=== PATIENT | female | born 1945 | race Caucasian/White ===

== ENCOUNTER → 2017-11-11 09:41 | Outpatient (CLI) | payer MEDICARE, OTHER, SELFPAY ==
--- NOTE | 2017-11-11 09:44 | HPBD_ITS ---
STUDY: DUAL ENERGY X-RAY ABSORPTIOMETRY / DXA REASON FOR EXAM: Female, 72 years old. The patient is postmenopausal. Loss of height. TECHNIQUE: Bone Mineral Density (BMD) measurements of lumbar spine and bilateral hips were obtained. COMPARISON: Comparison is made with prior study dated October 24, 2015. FINDINGS: Lumbar Spine (L1-L4): g/cm2 (1.015) / T-score (-1.3) / Z-score (0.5) Findings are suggestive of osteopenia with a moderate fracture risk. Left Femur Total: g/cm2 (0.771) / T-score (-1.9) / Z-score (-0.3) Left Femoral Neck: g/cm2 (0.737) / T-score (-2.2) / Z-score (-0.4) Right Femur Total: g/cm2 (0.709) / T-score (-2.4) / Z-score (-0.8) Right Femoral Neck: g/cm2 (0.715) / T-score (-2.3) / Z-score (-0.5) The T-Scores on the most recent prior examination were: Lumbar Spine (L1-L4): There has been worsening of bone density since the previous examination. Left Femur Total: which represents a worsening of 1.9%. Right Femur Total: which represents a worsening of 4.7%. HPBD/Dexa Bone Density Study (HP) IMPRESSION: The patient is considered osteopenic as outlined below according to World Shankar Organization (WHO) criteria with a moderate fracture risk. There has been worsening of bone density since the previous examination. Reference Information: The T-score is the number of standard deviations above or below the standard which is normal for young adults at their peak bone mineral density. The World Health Organization (WHO) interprets the T-scores as follows: Above -1 Normal bone density Between -1 and -2.5 Osteopenia Equal to / or below -2.5 Osteoporosis As a practical clinical guideline, osteopenia may be graded as follows: Mild -1 through -1.5 Moderate -1.6 through -2.0 Severe -2.1 through -2.4 The Z-score is the number of standard deviations above or below age-matched controls. A Z-score of less than -1.5 would be considered abnormal. References: 1. NIH Osteoporosis and Related Bone Diseases http://www.osteo.org 2. International Society for Clinical Densitometry http://www.iscd.org 3. National Osteoporosis Foundation http://www.nof.org Electronically Signed: Endy Zelaya MD at 10:16 EST Tel [phone], Service support ,
--- NOTE | 2017-11-11 09:44 | HPBI_ITS ---
MAMMOGRAPHY - BILATERAL SCREENING REASON FOR EXAM: Female, 72 years old. Routine annual screening examination. PERTINENT HISTORY: Non-contributory. TECHNIQUE: Digital bilateral breast jourdan (3D mammographic acquisition) in the CC and MLO projections. 2-D mediolateral oblique (MLO) and craniocaudad (CC) views of both breasts were obtained. CAD: Full Field Digital Mammography with Computer Added Detection was performed. COMPARISON: Comparison is made with prior study dated November 05, 2016 and October 24, 2015. FINDINGS: Breast Composition: There are scattered areas of fibroglandular density. There are no dominant masses or suspicious calcifications. No other significant abnormalities are identified. There has been no significant change since the prior study. HPBI/SCREENING MAMM (CAD), BILAT IMPRESSION: Stable bilateral screening mammogram. Yearly follow-up mammogram recommended. (A) ASSESSMENT CATEGORY: BIRADS Category 1: Negative. A letter regarding these results will be sent to the patient by the facility within 30 days. Approximately 10% of breast cancers are not detected by mammography. A normal mammogram should not delay biopsy of a clinically suspicious abnormality. [id number] Electronically Signed: Endy Zelaya MD at 13:11 EST Tel [phone], Service support ,
== END ==
PROVIDERS: Family Provider Internal Medicine; PCP Internal Medicine; Visit Provider Internal Medicine
DX: Z12.31 Encounter for screening mammogram for malignant neoplasm of breast (principal); N95.9 Unspecified menopausal and perimenopausal disorder; M85.80 Other specified disorders of bone density and structure, unspecified site
CPT/HCPCS: 77063; 77067; 77080

== ENCOUNTER 2018-02-27 11:40 | Emergency (ER) | payer MEDICARE, OTHER, SELFPAY ==
[2018-02-27 11:40] VITALS: BP 154/93; PULSE 85; RESP 18; TEMP 36.6; O2SAT 99; BMI 27.4
--- NOTE | 2018-02-27 12:24 | ED.VISSUMM ---
- ER Visit Summary Date of Service: 02/27/18 Chief Complaint: [] Upper lip laceration fall History of Present Illness: The patient is a 73 F [] she reports she fell tripping on pavement and suffered upper lip laceration no LOC no head neck chest pain no extremity pain complaints Physical Examination: [] Is about a 2 cm laceration through and through to the upper lip central her nose is unremarkable her facial bones are nontender extra muscles are full head neck nontender chest abdomen upper lower extremity nontender neurologically with movement moving all 4 heart and lungs are normal very minor chip to the upper incisors but she is aware of there is no bleeding there is no pain to the teeth there is no malocclusion there is no jaw pain Test Results: [] Emergency Department Course and Treatment: [] Discussed repair she agreed to suturing the area was sterilely prepped sanchez irrigated anesthetized and then closed with nylon with good results she was struck to have the sutures out in about 4-5 days and return for change in symptoms she will be started on Pen-Vee K and return for signs of infection 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 It may contain incorrect words, spelling, and punctuation that were not noted in review of the chart prior to signing ED Disposition - Plan for ED Patient: Chief Complaint: Laceration Referrals: Mary Curry DO [Primary Care Provider] -
--- NOTE | 2018-02-27 12:26 | ED.DEP ---
ED Disposition - Plan for ED Patient: Chief Complaint: Laceration Instructions: ED Laceration Mouth Prescriptions: Naproxen [Naprosyn] 500 mg PO BID PRN #20 tab Penicillin V Potassium 500 mg PO 4X/DAY #40 tab Referrals: Mary Curry DO [Primary Care Provider] -
[2018-02-27 12:32] VITALS: PULSE 92; RESP 14; O2SAT 98
== END 2018-02-27 12:53 | disposition home or self-care (01) ==
LOC: ED 12:36
PROVIDERS: Emergency Provider Emergency Medicine; Family Provider Internal Medicine; PCP Internal Medicine
DX: S01.511A Laceration without foreign body of lip, initial encounter (principal); W01.0XXA Fall on same level from slipping, tripping and stumbling without subsequent striking against object, initial encounter; Y93.9 Activity, unspecified; Y92.9 Unspecified place or not applicable; Y99.9 Unspecified external cause status
CPT/HCPCS: 12011; 99282

== ENCOUNTER → 2018-12-13 08:23 | Outpatient (CLI) | payer MEDICARE, OTHER, SELFPAY ==
--- NOTE | 2018-12-13 08:29 | BI_ITS ---
MAMMOGRAPHY - BILATERAL SCREENING REASON FOR EXAM: Female, 73 years old. Routine annual screening examination. PERTINENT HISTORY: Non-contributory. TECHNIQUE: Digital bilateral breast jourdan (3D mammographic acquisition) in the CC and MLO projections. 2-D mediolateral oblique (MLO) and craniocaudad (CC) views of both breasts were obtained. CAD: Full Field Digital Mammography with Computer Added Detection was performed. COMPARISON: Comparison is made with prior examination dated November 11, 2017 and November 05, 2016. FINDINGS: Breast Composition: There are scattered areas of fibroglandular density. There are no dominant masses or suspicious calcifications. No other significant abnormalities are identified. There has been no significant change since the prior study. BI/SCREENING MAMM (CAD), BILAT IMPRESSION: Stable bilateral screening mammogram. Yearly follow-up mammogram recommended. (A) ASSESSMENT CATEGORY: BIRADS Category 1: Negative. A letter regarding these results will be sent to the patient by the facility within 30 days. Approximately 10% of breast cancers are not detected by mammography. A normal mammogram should not delay biopsy of a clinically suspicious abnormality. [id number] Electronically Signed: Endy Zelaya, at 10:24 EST , Service support ,
== END ==
PROVIDERS: Family Provider Internal Medicine; PCP Internal Medicine; Referring Provider Internal Medicine; Visit Provider Internal Medicine
DX: Z12.31 Encounter for screening mammogram for malignant neoplasm of breast (principal)
CPT/HCPCS: 77063; 77067

== ENCOUNTER → 2019-11-16 08:33 | Outpatient (CLI) | payer MEDICARE, OTHER, SELFPAY ==
[2019-09-19 17:01] VITALS: BMI 27.4
[2019-11-16 12:24] LABS: Absolute Lymphocyte Count 0.98 X10^3/uL (0.83-4.51); Absolute Neutrophil Count 1.5 X10^3/uL (2.0-7.7); Basophil# 0.05 X10^3/uL; Basophil% 1.5 % (0-1); Eosinophil# 0.23 X10^3/uL; Eosinophils% 7.1 % (0-5); Hematocrit 38.3 % (37-47); Hemoglobin 12.4 g/dL (12.0-15.0); Lymphocyte # 0.98 X10^3/ul (4.0); Lymphocyte % 30.2 % (19-41); Mean Corp Hgb Conc 32.4 g/dL (32-36); Mean Corpuscular Hgb 30.8 pg (27.0-32.0); Mean Corpuscular Volume 95.3 fL (81-99); Mean Platelet Vol. 12.1 fl (6.2-12.0); Monocyte# 0.52 X10^3/uL; NRBC Flagged by Analyzer 0 % (0-5); Neutrophil # 1.46 X10^3/uL (2.7-7.7); Neutrophil % 44.9 % (47-70); Platelet Count 236 K/mm3 (150-450); RBC Distribution Width CV 12.6 % (11.6-14.6); RBC Distribution Width SD 44.1 fl (35.1-43.9); Red Blood Count 4.02 M/mm3 (4.2-5.4); White Blood Count 3.3 K/mm3 (4.4-11.0)
[2019-11-16 12:45] LABS: ALB/GLOB Ratio 0.9 RATIO (0.9-2.4); AST(SGOT) 21 U/L (15-37); Alanine Aminotransfer ALT/SGPT 24 U/L (13-56); Albumin, Serum 3.4 g/dL (3.2-5.0); Alkaline Phosphatase 56 U/L (45-117); Anion Gap 3 (5-15); BUN 15 mg/dL (7-18); Calcium,Total 9.1 mg/dL (8.5-10.1); Chloride 108 mmol/L (98-107); Creatinine, Serum 0.68 mg/dL (0.55-1.02); EST Glomerular Filtration Rate 89 mL/min (>60); Est Glom Filt Rate - Afr Amer 108 mL/min (>60); Globulin 3.6 g/dL (2.2-4.2); Glucose 85 mg/dL (74-106); Sodium Level 142 mmol/L (136-145)
[2019-11-16 12:48] LABS: Vitamin D,25 Hydroxy 51.4 ng/mL (29.95-100.01)
== END ==
PROVIDERS: PCP Internal Medicine; Referring Provider Internal Medicine; Visit Provider Internal Medicine
DX: M85.80 Other specified disorders of bone density and structure, unspecified site (principal); K21.9 Gastro-esophageal reflux disease without esophagitis
CPT/HCPCS: 36415; 80053; 82306; 85025

== ENCOUNTER → 2019-12-12 08:25 | Outpatient (CLI) | payer MEDICARE, OTHER, SELFPAY ==
[2019-11-16 08:44] VITALS: BMI 27.4
[2019-12-12 12:17] LABS: Absolute Lymphocyte Count 0.88 X10^3/uL (0.83-4.51); Absolute Neutrophil Count 2.1 X10^3/uL (2.0-7.7); Basophil# 0.07 X10^3/uL; Basophil% 1.9 % (0-1); Eosinophil# 0.19 X10^3/uL; Eosinophils% 5.1 % (0-5); Hematocrit 39.8 % (37-47); Hemoglobin 12.6 g/dL (12.0-15.0); Lymphocyte # 0.88 X10^3/ul (4.0); Lymphocyte % 23.5 % (19-41); Mean Corp Hgb Conc 31.7 g/dL (32-36); Mean Corpuscular Hgb 29.7 pg (27.0-32.0); Mean Corpuscular Volume 93.9 fL (81-99); Mean Platelet Vol. 11.6 fl (6.2-12.0); Monocyte# 0.48 X10^3/uL; Monocyte% 12.8 % (0-10); NRBC Flagged by Analyzer 0 % (0-5); Neutrophil # 2.11 X10^3/uL (2.7-7.7); Neutrophil % 56.4 % (47-70); Platelet Count 266 K/mm3 (150-450); RBC Distribution Width CV 13.2 % (11.6-14.6); RBC Distribution Width SD 45.1 fl (35.1-43.9); Red Blood Count 4.24 M/mm3 (4.2-5.4); White Blood Count 3.7 K/mm3 (4.4-11.0)
== END ==
PROVIDERS: PCP Internal Medicine; Referring Provider Internal Medicine; Visit Provider Internal Medicine
DX: D72.819 Decreased white blood cell count, unspecified (principal)
CPT/HCPCS: 36415; 85025

== ENCOUNTER → 2019-12-14 09:20 | Outpatient (CLI) | payer MEDICARE, OTHER, SELFPAY ==
[2019-09-19 13:57] VITALS: BMI 29.7
[2019-11-16 08:44] VITALS: BMI 27.4
--- NOTE | 2019-12-14 09:22 | BI_ITS ---
MAMMOGRAPHY - BILATERAL SCREENING REASON FOR EXAM: Female, 74 years old. Routine annual screening examination. PERTINENT HISTORY: TECHNIQUE: Digital bilateral breast minoo (3D mammographic acquisition) in the CC and MLO projections. 2-D mediolateral oblique (MLO) and craniocaudad (CC) views of both breasts were obtained. CAD: Full Field Digital Mammography with Computer Added Detection was performed. COMPARISON: Previous mammogram obtained on 12/13/2018 FINDINGS: Breast Composition: Heterogeneously dense There are no dominant masses or suspicious calcifications. No other significant abnormalities are identified. BI/SCREEN MAMM (CAD) W/MINOO BILAT IMPRESSION: Stable bilateral screening mammogram. Yearly follow-up mammogram recommended. (A) ASSESSMENT CATEGORY: BIRADS Category 1: Negative. A letter regarding these results will be sent to the patient by the facility within 30 days. Approximately 10% of breast cancers are not detected by mammography. A normal mammogram should not delay biopsy of a clinically suspicious abnormality. [id number] Electronically Signed: Deuce Jones, at 17:01 EST Tel , Service support ,
--- NOTE | 2019-12-14 09:25 | BD_ITS ---
STUDY: DUAL ENERGY X-RAY ABSORPTIOMETRY / DXA REASON FOR EXAM: Female, 74 years old. Age of lisseth- 40. Pat is 163# and 62.5 and quot; a loss of 1.5 and quot;. Currently on a HRT. Takes 1200mg of calcium and a multi-vit. Exercises moderately. TECHNIQUE: Bone Mineral Density (BMD) measurements of lumbar spine and bilateral hips were obtained. COMPARISON: Comparison is made with prior study dated November 11, 2017. FINDINGS: Lumbar Spine (L1-L4): g/cm2 (1.034) / T-score (-1.1) / Z-score (0.7) Findings are suggestive of osteopenia with a low fracture risk. Left Femur Total: g/cm2 (0.778) / T-score (-1.8) / Z-score (-0.1) Left Femoral Neck: g/cm2 (0.762) / T-score (-2.0) / Z-score (-0.1) Right Femur Total: g/cm2 (0.718) / T-score (-2.3) / Z-score (-0.6) Right Femoral Neck: g/cm2 (0.740) / T-score (-2.1) / Z-score (-0.2) The T-Scores on the most recent prior examination were: Lumbar Spine (L1-L4): There has been improvement of bone density since the previous examination. Left Femur Total: which represents an improvement of 0.9%. Right Femur Total: which represents an improvement of 1.3%. BD/Dexa Bone Density Study IMPRESSION: The patient is considered osteopenic as outlined below according to World Shankar Organization (WHO) criteria with a high fracture risk. There has been improvement of bone density since the previous examination. Reference Information: The T-score is the number of standard deviations above or below the standard which is normal for young adults at their peak bone mineral density. The World Health Organization (WHO) interprets the T-scores as follows: Above -1 Normal bone density Between -1 and -2.5 Osteopenia Equal to / or below -2.5 Osteoporosis As a practical clinical guideline, osteopenia may be graded as follows: Mild -1 through -1.5 Moderate -1.6 through -2.0 Severe -2.1 through -2.4 The Z-score is the number of standard deviations above or below age-matched controls. A Z-score of less than -1.5 would be considered abnormal. References: 1. NIH Osteoporosis and Related Bone Diseases http://www.osteo.org 2. International Society for Clinical Densitometry http://www.iscd.org 3. National Osteoporosis Foundation http://www.nof.org Electronically Signed: Endy Zelaya, at 15:34 EST , Service support ,
== END ==
PROVIDERS: Family Provider Internal Medicine; PCP Internal Medicine; Referring Provider Internal Medicine; Visit Provider Internal Medicine
DX: Z12.31 Encounter for screening mammogram for malignant neoplasm of breast (principal); M85.80 Other specified disorders of bone density and structure, unspecified site; Z79.890 Hormone replacement therapy; Z78.0 Asymptomatic menopausal state
CPT/HCPCS: 77063; 77067; 77080

== ENCOUNTER → 2020-09-06 09:08 | Outpatient (CLI) | payer MEDICARE, OTHER, SELFPAY ==
[2019-12-28 11:15] VITALS: BMI 27.4
[2020-09-06 10:21] LABS: Absolute Lymphocyte Count 1.36 X10^3/uL (0.83-4.51); Absolute Neutrophil Count 2.1 X10^3/uL (2.0-7.7); Basophil# 0.06 X10^3/uL; Basophil% 1.4 % (0-1); Eosinophil# 0.28 X10^3/uL; Eosinophils% 6.4 % (0-5); Hemoglobin 13.1 g/dL (12.0-15.0); Lymphocyte # 1.36 X10^3/ul (4.0); Lymphocyte % 31.1 % (19-41); Mean Corp Hgb Conc 31.2 g/dL (32-36); Mean Corpuscular Hgb 30.4 pg (27.0-32.0); Mean Corpuscular Volume 97.4 fL (81-99); Monocyte# 0.54 X10^3/uL; Monocyte% 12.4 % (0-10); NRBC Flagged by Analyzer 0 % (0-5); Neutrophil # 2.12 X10^3/uL (2.7-7.7); Neutrophil % 48.5 % (47-70); Platelet Count 226 K/mm3 (150-450); RBC Distribution Width CV 13.2 % (11.6-14.6); RBC Distribution Width SD 48.4 fl (35.1-43.9); Red Blood Count 4.31 M/mm3 (4.2-5.4); White Blood Count 4.4 K/mm3 (4.4-11.0)
[2020-09-06 10:32] LABS: BUN 14 mg/dL (7-18); Creatinine, Serum 0.74 mg/dL (0.55-1.02); EST Glomerular Filtration Rate 81 mL/min (>60); Glucose 87 mg/dL (74-106)
[2020-09-06 10:33] LABS: AST(SGOT) 23 U/L (15-37); Alanine Aminotransfer ALT/SGPT 22 U/L (13-56); Albumin, Serum 3.6 g/dL (3.2-5.0); Alkaline Phosphatase 80 U/L (45-117); Anion Gap 2 (5-15); BUN/Creat Ratio 18.9 RATIO (10-20); Calcium,Total 9.1 mg/dL (8.5-10.1); Chloride 107 mmol/L (98-107); Est Glom Filt Rate - Afr Amer 98 mL/min (>60); Globulin 3.7 g/dL (2.2-4.2); Potassium 4.1 mmol/L (3.5-5.1); Protein, Total 7.3 g/dL (6.4-8.2); Sodium Level 141 mmol/L (136-145)
== END ==
PROVIDERS: PCP Internal Medicine; Referring Provider Internal Medicine; Visit Provider Internal Medicine
DX: K21.9 Gastro-esophageal reflux disease without esophagitis (principal)
CPT/HCPCS: 36415; 80053; 85025

== ENCOUNTER 2020-12-06 04:22 | Observation (INO) | payer MEDICARE, OTHER, SELFPAY ==
[2020-11-19 09:47] VITALS: BMI 29.0
[2020-12-06] VITALS (12 sets, daily range): BP systolic 101–134; BP diastolic 50–71; PULSE 61–85; RESP 12–19; TEMP 36.3–37.1; O2SAT 93–99; BMI 30.9; BMI 28.5
--- NOTE | 2020-12-06 04:31 | EKG12_ITS ---
Test Reason : CP Blood Pressure : / mmHG Vent. Rate : 082 BPM Atrial Rate : 082 BPM P-R Int : 200 ms QRS Dur : 088 ms QT Int : 384 ms P-R-T Axes : 076 -14 067 degrees QTc Int : 448 ms Sinus rhythm Cannot rule out Anterior infarct , age undetermined Abnormal ECG Confirmed by SANDRA PALOMARES, GERARDO ([id number]), senior technical editor LEONARDO RODGERS ([id number]) on 12/09/2020 10:55:50 AM Referred By: BB Confirmed By:GERARDO FLORES MD
--- NOTE | 2020-12-06 04:34 | ED.DCSUM_ITS ---
History of Present Illness Chief Complaint: Chest Pain Informant: Patient, EMS Onset: Yesterday - 10.5 hrs prior to arrival Activity at onset: Rest - soon after eating dinner - nothing unusual Timing: Continuous Quality: Pressure Location: Substernal - lower chest/epigastrium Current Severity: Moderate Maximum Severity: Moderate Worsened By: - - possibly worse by lying supine. Not Worsened By: Exertion, Breathing Relieved By: - - maybe a little better when sits up. Not Relieved By: NTG - NTG and asa made it worse Associated Symptoms: - - abd distension, better w/ baking soda and water Narrative: Patient has a history of having had these symptoms in the past and she states it was suspected to be GI in etiology each time, but since she is getting old she wanted to make sure that she was not dealing with cardiac pain since it is nonpleuritic pressure in nature. Once she felt it in her mid upper back, but for the most part it has been nonradiating. No jaw, neck, or arm discomfort. No vomiting. Her abdomen was distended earlier but that is better now. She tried some supplements and baking soda with water but no prescriptions or OTC medications. She does not take any reflux prescriptions. Prior Similar Symptoms: Yes, - - w/ GERD - Past Medical History (1) Depression Status: Chronic (2) Gastroesophageal reflux disease Status: Chronic (3) Osteopenia Status: Chronic Past Medical History - Allergies and Home Meds Allergies/Adverse Reactions: Allergies almond Allergy (Mild, Verified 12/06/20 04:30) Swelling blue dye Allergy (Mild, Verified 12/06/20 04:30) Itch Anesthesia Allergy (Mild, Uncoded 12/06/20 04:30) Vomiting Prolonged (12 hrs) Dairy Allergy (Mild, Uncoded 12/06/20 04:30) Bronchitis/Swelling Eggs Allergy (Mild, Uncoded 12/06/20 04:30) Bronchitis/swelling Peaches Allergy (Mild, Uncoded 12/06/20 04:30) Swelling Vasoline Allergy (Mild, Uncoded 12/06/20 04:30) Itching Primary Care Physician: Justine Trejo MD [Primary Care Provider] - Surgical History: - - Bilateral tubal like ectomy Smoking Status: Never smoker Review of Systems General: Denies: Chills, Fever, Sweats Eyes: Denies: Visual changes - bilaterally, Diplopia ENT: Denies: Rhinorrhea, Sore throat Cardiovascular: Reports: Chest pain. Denies: Palpitations Respiratory: Denies: Dyspnea, Cough, Dyspnea on exertion Gastrointestinal: Reports: Abdominal pain, Nausea. Denies: Vomiting, Diarrhea, Melena, Hematochezia Genitourinary: Denies: Dysuria, Hematuria, Frequency Musculoskeletal: Denies: Neck pain, Extremity Pain Skin: Denies: Rash, Wounds Neurological: Denies: Headache, Weakness, Numbness Physical Exam Vital Signs/Narrative: Vital Signs Temp Pulse Resp BP Pulse Ox 12/06/20 04:23 97.7 F L 83 16 130/71 H 94 Inital Vital Signs reviewed: Yes General: Well nourished, Well developed, No Acute Distress - Well-appearing, conversive in full sentences Head: Normocephalic, Atraumatic Eyes: Perrl, EOMI ENT: Moist mucous membranes, No rhinorrhea Neck: Supple, Nontender Cardiovascular: Regular rate, Regular rhythm, Murmur - syst Respiratory: No distress, CTA bilaterally, Chest nontender Abdomen: Soft, Nondistended, Normal bowel sounds, Tender - Mild epigastric only. Negative for: Guarding, Rebound tenderness, Yepez's sign Back: Nontender, Normal Inspection. Negative for: CVA tenderness Extremities: Nontender, No edema. Negative for: Calf Tenderness Skin: Normal color, No rash, No Trauma Neurological: Alert, Oriented x3, Cranial nerves II-XII grossly intact, Normal Strength, Normal Sensation Psychological: Normal affect, Normal Mood Diagnostic/Tx/Re-eval Chest X-Ray - ED: 1 View, Read by ED Physician, No Acute Disease Clinical Impression(s) from Imaging Studies Chest X-Ray 12/06/20 04:40 IMPRESSION: Normal x-ray examination of the chest. Electronically Signed: Ross Alejandro DO at 4:56 EST Tel , Service support , Laboratory Tests 12/06/20 12/06/20 Range/Units 04:25 04:25 WBC 8.9 (4.4-11.0) K/mm3 RBC 4.13 L (4.2-5.4) M/mm3 Hgb 12.8 (12.0-15.0) g/dL Hct 39.4 (37-47) % MCV 95.4 (81-99) fL MCH 31.0 (27.0-32.0) pg MCHC 32.5 (32-36) g/dL RDW Std Deviation 45.2 H (35.1-43.9) fl RDW Coeff of Samson 12.8 (11.6-14.6) % Plt Count 225 (150-450) K/mm3 MPV 10.5 (6.2-12.0) fl Immature Gran % (Auto) 0.300 (0.0-0.9) % Neut % (Auto) 87.7 H (47-70) % Lymph % (Auto) 8.1 L (19-41) % Upton % (Auto) 3.4 (0-10) % Eos % (Auto) 0.1 (0-5) % Baso % (Auto) 0.4 (0-1) % Absolute Neuts (auto) 7.8 H (2.0-7.7) X10^3/uL Absolute Lymphs (auto) 0.72 L (0.83-4.51) X10^3/uL Nucleated RBC % 0 (0-5) % Sodium 137 (136-145) mmol/L Potassium 3.6 (3.5-5.1) mmol/L Chloride 103 (98-107) mmol/L Carbon Dioxide 28.0 (21.0-32.0) mmol/L Anion Gap 6 (5-15) BUN 20 H (7-18) mg/dL Creatinine 0.75 (0.55-1.02) mg/dL Estim Creat Clear Calc 40.21 ml/min Est GFR (MDRD) Af Amer 97 (>60) mL/min Est GFR (MDRD) Non-Af 80 (>60) mL/min BUN/Creatinine Ratio 26.7 H (10-20) RATIO Glucose 140 H (74-106) mg/dL Calcium 9.1 (8.5-10.1) mg/dL Total Bilirubin 0.40 (0.20-1.00) mg/dL AST 26 (15-37) U/L ALT 24 (13-56) U/L Alkaline Phosphatase 88 (45-117) U/L Troponin I < 0.015 (<0.045) ng/mL Total Protein 7.5 (6.4-8.2) g/dL Albumin 3.5 (3.2-5.0) g/dL Globulin 4.0 (2.2-4.2) g/dL Albumin/Globulin Ratio 0.9 (0.9-2.4) RATIO Lipase 82 (73-393) U/L - Rhythm Strip Rhythm Strip: Sinus Rhythm Rate: 82 Ectopy: None - EKG Initial EKG Interpretation: Sinus Rhythm, No Acute Injury Pattern, - - Poor R wave progression Prior: No 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 She indicated that the discomfort was colicky and she was having waves of nausea, and all this started after she ate soup with sausage and it. Patient presents when ultrasound is not available, so I evaluated her gallbladder with the ED screening ultrasound, see the procedure note. In doing so, I detected a large gallstone stuck in the neck of the gallbladder, which I suspect is causing her symptoms. Her cardiac work-up is negative she states this has been the case multiple times in the past but she has never had an ultrasound of her gallbladder when she was admitted for the symptoms, none of which were recent. She then was given a small dose of Toradol. This helped significantly with her pain. I discussed the concerning ultrasound findings with surgery on-call Dr. Washington, including the wall thickness of 0.5 cm and a large cholesterol stone stuck in the neck. His preference is to admit her for urgent cholecystectomy given early radiographic signs of acute cholecystitis. Official ultrasound ordered and pending when the technicians get in. Patient will be admitted to floor n.p.o. Procedures Procedure(s): Bedside gallbladder ultrasound by ED MD --ultrasound shows single large cholesterol stone lodged within the neck of the gallbladder with a positive sonographic Yepez's, this is more medial toward the epigastrium, not laterally where I examine for Yepez sign on exam. Gallbladder wall is approximately 0.5 cm. I do not see pericholecystic fluid. Gallbladder is distended. ED Disposition - Plan for ED Patient: Disposition: [facility] Diagnosis: Acute calculous cholecystitis Referrals: Justine Trejo MD [Primary Care Provider] -
[2020-12-06] MEDS: Mag Hydrox/Al Hydrox/Simeth 30 ML UDC PO (04:36)
--- NOTE | 2020-12-06 04:40 | RAD_ITS ---
STUDY: X-RAY CHEST REASON FOR EXAM: Female, 75 years old. CHEST PAIN TECHNIQUE: Single AP portable view of the chest. COMPARISON: 12/12/2015 FINDINGS: Mildly elevated right hemidiaphragm The lungs are clear and expanded. There is no demonstrated pleural abnormality. Normal size heart. Normal mediastinum and jesús. Normal visualized pulmonary arteries. Normal visualized aortic arch and descending thoracic aorta. Normal visualized thoracic spine. Normal visualized ribs, clavicles, and shoulders. There is no demonstrated abnormality of the visualized soft tissue structures of the upper abdomen. RAD/Chest 1 View (Portable) IMPRESSION: Normal x-ray examination of the chest. Electronically Signed: Ross Alejandro DO at 4:56 EST Tel , Service support ,
[2020-12-06 04:45] LABS: Absolute Lymphocyte Count 0.72 X10^3/uL (0.83-4.51); Absolute Neutrophil Count 7.8 X10^3/uL (2.0-7.7); Basophil# 0.04 X10^3/uL; Basophil% 0.4 % (0-1); Eosinophil# 0.01 X10^3/uL; Eosinophils% 0.1 % (0-5); Hematocrit 39.4 % (37-47); Hemoglobin 12.8 g/dL (12.0-15.0); Lymphocyte # 0.72 X10^3/ul (4.0); Lymphocyte % 8.1 % (19-41); Mean Corp Hgb Conc 32.5 g/dL (32-36); Mean Corpuscular Volume 95.4 fL (81-99); Mean Platelet Vol. 10.5 fl (6.2-12.0); Monocyte% 3.4 % (0-10); NRBC Flagged by Analyzer 0 % (0-5); Neutrophil % 87.7 % (47-70); Platelet Count 225 K/mm3 (150-450); RBC Distribution Width CV 12.8 % (11.6-14.6); RBC Distribution Width SD 45.2 fl (35.1-43.9); Red Blood Count 4.13 M/mm3 (4.2-5.4); White Blood Count 8.9 K/mm3 (4.4-11.0)
[2020-12-06 05:12] LABS: ALB/GLOB Ratio 0.9 RATIO (0.9-2.4); AST(SGOT) 26 U/L (15-37); Alanine Aminotransfer ALT/SGPT 24 U/L (13-56); Albumin, Serum 3.5 g/dL (3.2-5.0); Alkaline Phosphatase 88 U/L (45-117); Anion Gap 6 (5-15); BUN 20 mg/dL (7-18); BUN/Creat Ratio 26.7 RATIO (10-20); Calcium,Total 9.1 mg/dL (8.5-10.1); Chloride 103 mmol/L (98-107); Creatinine, Serum 0.75 mg/dL (0.55-1.02); EST Glomerular Filtration Rate 80 mL/min (>60); Est Glom Filt Rate - Afr Amer 97 mL/min (>60); Estimated Creatinine Clearance 40.21 ml/min; Glucose 140 mg/dL (74-106); Lipase 82 U/L (73-393); Potassium 3.6 mmol/L (3.5-5.1); Protein, Total 7.5 g/dL (6.4-8.2); Sodium Level 137 mmol/L (136-145)
[2020-12-06] MEDS: Ketorolac 15 MG/ML Vial IV (05:47)
--- NOTE | 2020-12-06 06:30 | US_ITS ---
STUDY: ABDOMINAL ULTRASOUND - RIGHT UPPER QUADRANT REASON FOR VISIT: Female, 75 years old epigastric pain x 3 days TECHNIQUE: Ultrasound evaluation of the right upper quadrant was performed with real-time and static lam-scale imaging. TECHNICAL QUALITY: Adequate. COMPARISON: None. FINDINGS: Liver: The liver measures 13.2 cm. There is normal echogenicity of the liver. The bile ducts are within normal limits. There is hepatic color flow. The direction of portal flow is hepatopetal. There is no demonstrated mass lesion. Gallbladder: There is a mildly distended gallbladder. The gallbladder wall measures 2.5 mm. There is a positive sonographic Yepez''s sign. There is pericholecystic fluid. There are multiple echogenic structures within the gallbladder, consistent with multiple gallstones. Sludge is also seen within the gallbladder lumen. Common Bile Duct (C.B.D.): The common bile duct measures 8 mm. Pancreas: Normal size of the head, body and tail of the pancreas. There is normal echogenicity of the pancreas. There is no demonstrated pancreatic mass or cyst. Right Kidney: Normal size of the right kidney. The right kidney measures 9.6 cm x 5.7 cm x 5 cm. Normal renal cortex. The right cortex measures 1.3 cm. There is no demonstrated renal mass or cyst. There is mild hydronephrosis of the right kidney. US/Abdomen Limited IMPRESSION: Mildly distended gallbladder containing multiple gallstones and sludge. Small amount of pericholecystic fluid. Mild right hydronephrosis. Electronically Signed: Endy Zelaya MD at 8:33 EST , Service support ,
--- NOTE | 2020-12-06 07:14 | HP.PCM_ITS ---
Problem List (1) Acute calculous cholecystitis Status: Acute History of Present Illness Date of Admission: 12/06/20 The patient is a 75 year old F who presented with lower chest and upper abdominal pain. She reports that she has had a few episodes of this pain recently and has had some more remote episodes like this as well. She denies any nausea or vomiting or fevers or chills. Past Medical History Past Medical History (Chronic Problems): Chronic Problems (Last Reviewed 12/28/19 @ 11:12 by Caryl Lackey) Acid reflux (Chronic) Osteopenia (Chronic) Hypoglycemia (Chronic) Hearing loss (Chronic) Wears Hearing Aids Back problem (Chronic) h/o Ruptured Disc Multiple food allergies (Chronic) Obesity (Chronic) Gastroesophageal reflux disease (Chronic) Depression (Chronic) Medical History: Medical History (Last Reviewed 12/28/19 @ 11:12 by Caryl Lackey) Acid reflux (Chronic) K21.9 Osteopenia (Chronic) M85.80 Hypoglycemia (Chronic) E16.2 Hearing loss (Chronic) H91.90 Wears Hearing Aids Back problem (Chronic) M53.9 h/o Ruptured Disc Multiple food allergies (Chronic) Z91.018 Allergies almond Allergy (Mild, Verified 12/06/20 04:30) Swelling blue dye Allergy (Mild, Verified 12/06/20 04:30) Itch Anesthesia Allergy (Mild, Uncoded 12/06/20 04:30) Vomiting Prolonged (12 hrs) Dairy Allergy (Mild, Uncoded 12/06/20 04:30) Bronchitis/Swelling Eggs Allergy (Mild, Uncoded 12/06/20 04:30) Bronchitis/swelling Peaches Allergy (Mild, Uncoded 12/06/20 04:30) Swelling Vasoline Allergy (Mild, Uncoded 12/06/20 04:30) Itching Home Medications: Ambulatory Orders Medication Instructions Recorded Calcium Citrate 600mg 600 mg PO DAILY 09/07/19 Citicoline 250mg 250 mg PO DAILY 09/07/19 Eye Drops 2 drop OPHTHALMIC TID 09/07/19 Homeopathic Remedy PO 09/07/19 diaplex mg PO DAILY 09/07/19 loratadine 10 mg tablet 10 mg PO DAILY 09/07/19 magnesium 250 mg tablet 250 mg PO BID tab 09/07/19 multivitamin 1 tab PO DAILY 09/07/19 omega-3 fatty acids 2,000 mg PO DAILY 09/07/19 ubiquinal 50mg PO DAILY 09/07/19 vitamin d 125 mcg 5 drop PO DAILY 09/07/19 C-estradiol See Rx Instructions VAGINAL .weekly 12/21/19 meclizine 25 mg tablet 25 mg PO DAILY PRN #60 tab 11/19/20 vitamin A 2 drop PO DAILY 11/19/20 Surgical History: Surgical History (Last Reviewed 12/28/19 @ 11:12 by Caryl Lackey) History of D&C Z98.890 X 3 History of cataract extraction Z98.49 History of tonsillectomy Z90.89 History of tubal ligation Z98.51 Surgical History: - - Bilateral tubal like ectomy Smoking Status: Never smoker - *Family History Paternal Family History: Family History (Last Reviewed 12/28/19 @ 11:12 by Caryl Lackey) Son Autoimmune disorder Mother Hypertension Kidney disease CVA (cerebral vascular accident) Colon cancer Father Alzheimer disease Grandmother Alzheimer disease Review of Systems Constitutional: Denies: Anorexia, Chills, Fever HEENT: Denies: Difficulty Swallowing Cardiovascular: Reports: Chest Pain Respiratory: Denies: Cough, Shortness of Breath, Shortness of breath at rest Gastrointestinal: Reports: Abdominal Pain. Denies: Nausea, Vomiting Genitourinary: Denies: Dysuria Musculoskeletal: Denies: Joint Tenderness Skin: Denies: Jaundice Neurological: Denies: Balance problems Hematologic/ Lymphatic: Denies: Anemia VTE Information - Inpt Only VTE Present on Admission: No VTE Mechan Device Prophylaxis: SCD's Patient Problems: Active and Suspected Problems (Last Reviewed 12/28/19 @ 11:12 by Caryl Lackey) Acute calculous cholecystitis (Acute) - Physical Exam Vitals/I&O's: Vital Signs Temp Pulse Resp BP Pulse Ox 97.7 F L 72 16 116/52 L 98 12/06/20 06:49 12/06/20 06:49 12/06/20 06:49 12/06/20 06:49 12/06/20 06:49 Oxygen Delivery Method Room Air Weight: 174 lb 6.17 oz Body Mass Index (BMI) 30.9 General: Alert, Oriented x3 Neck: No JVD Lungs: Normal air movement Cardiovascular: Regular rate, Regular Rhythm Abdomen: Soft, Non-Distended, Tender - Tender in the right upper quadrant positive Yepez sign Extremities: No clubbing Musculoskeletal: No Muscle Wasting Lymphatic: No Cervical, Supraclavicular, or Inguinal Adenopathy Neurological: Cranial nerves II-XII grossly intact Psych/Mental Status: Normal Affect Laboratory Results 12/06/20 04:25: WBC 8.9, RBC 4.13 L, Hgb 12.8, Hct 39.4, MCV 95.4, MCH 31.0, MCHC 32.5, RDW Std Deviation 45.2 H, RDW Coeff of Samson 12.8, Plt Count 225, MPV 10.5, Immature Gran % (Auto) 0.300, Neut % (Auto) 87.7 H, Lymph % (Auto) 8.1 L, [place] % (Auto) 3.4, Eos % (Auto) 0.1, Baso % (Auto) 0.4, Absolute Neuts (auto) 7.8 H, Absolute Lymphs (auto) 0.72 L, Nucleated RBC % 0 12/06/20 04:25: Sodium 137, Potassium 3.6, Chloride 103, Carbon Dioxide 28.0, Anion Gap 6, BUN 20 H, Creatinine 0.75, Estim Creat Clear Calc 40.21, Est GFR (MDRD) Af Amer 97, Est GFR (MDRD) Non-Af 80, BUN/Creatinine Ratio 26.7 H, Glucose 140 H, Calcium 9.1, Total Bilirubin 0.40, AST 26, ALT 24, Alkaline Phosphatase 88, Troponin I < 0.015, Total Protein 7.5, Albumin 3.5, Globulin 4.0, Albumin/Globulin Ratio 0.9, Lipase 82 Assessment/Plan All Active Problems (Last Reviewed 12/28/19 @ 11:12 by Caryl Lackey) Acute calculous cholecystitis (Acute) 75-year-old female with acute cholecystitis 1. Patient came in with right-sided chest and abdominal pain. EKG was normal and the patient had bedside ultrasound in the ER which showed a large stone stuck in the neck of the gallbladder. Patient also has a left shift. I discussed these findings with her and I recommended laparoscopic cholecystectomy. I advised her that if she waited for elective surgery she may have acute cholecystitis worsening and require emergency surgery at similar time in the interim. I recommended surgery today. 2. I discussed the procedure in detail with the patient. I discussed the risks, benefits, and alternatives of the procedure. I discussed the risks including but not limited to bleeding, infection, injury to surrounding organs such as the liver, bile duct, bowels. I did discuss the possibility of having to convert to an open procedure as well as the possibility that if any injuries occurred this may necessitate further surgery at a tertiary care center. 3. I will admit her to the floor and start antibiotics and order an official ultrasound to confirm the bedside findings. If these confirm the ER findings I will plan for laparoscopic cholecystectomy this afternoon. James Washington MD Pager: [facility] [address] [place] [address], [address] [place] [address] Office:
[2020-12-06] MEDS: 0.9% Normal Saline 1,000 ML 100 ML IV (08:49)
[2020-12-06] MEDS: 0.9% Saline Lock 10 ML Syringe IV (08:50)
--- NOTE | 2020-12-06 09:50 | CASEMGMT ---
RN LUIS ALFREDO Face to Face with patient for initial transition planning/care coordination assessment. RN CM introduced self and role at [facility]. Patient lying in bed, alert and oriented. Patient willing to participate in assessment and is able to answer all questions appropriately. Care providers, pharmacy, and demographics verified. Patient wishes to discharge home, denies need for home health at this time. Patient states she has no further needs or concerns at this time. CM to follow for discharge planning needs that may arise. PCP: Neil Specialists: [facility] general surgery Preferred Pharmacy: [facility] Insurance: Medicare Prescription Benefit: yes Living Will/HPOA: yes, yes, DIL Ben Gonzalez LNOK: son and dil Living Arrangements: Pt lives alone in a condo with two steps to enter with rail and grab bar. Patient states she was independent at home. She is still working as a dental hygientist. Transportation: self, son or dil DME/HHC: Pt does not have DME nor does she feel she needs it. She has not previously had HHC. Disposition Plan: Patient to discharge home with family support and follow up plans in place.
--- NOTE | 2020-12-06 10:45 | CT_ITS ---
STUDY: CT ABDOMEN AND PELVIS WITH CONTRAST REASON FOR EXAM: Female, 75 years old. ACUTE CORNELIA RADIATION DOSAGE (If Supplied By Facility): CTDIvol = ( 10.73 ) mGy, DLP = ( 607.15 ) mGycm TECHNIQUE: Transaxial images were obtained from the dome of the diaphragm to the symphysis pubis with oral contrast. Oral and amp; IV Gastrografin and amp; 100mL Isovue-300 was administered. Sagittal and coronal images were reconstructed. Individualized dose optimization techniques were used for this CT. COMPARISON: Comparison is made with prior sonogram done earlier in the day. FINDINGS: Minimal degree of increased markings at the right lung base suggestive of right basilar atelectasis. The visualized portions of the heart are within normal limits. There is a 5.8 mm cyst in the dome of the right lobe of the liver. A 6 mm cyst is also seen in the mid medial portion of the right lobe of the liver. The gallbladder is distended. At least 2 gallstones are seen in the region of the neck of the gallbladder. The larger gallstone measures 1.8 cm. There is evidence of pericholecystic fluid and mild degree of gallbladder wall thickening. Normal spleen. Normal pancreas. Normal bilateral adrenal glands. Minimal right hydronephrosis. Normal left kidney. Normal visualized stomach. Normal small intestine. Moderate amount of fecal material is seen in the colon. The appendix is visualized and appears normal. Normal abdominal aorta. Normal inferior vena cava. Normal retroperitoneum. Normal urinary bladder. Normal abdominal wall. Disc space narrowing and disc degeneration at the L5-S1 level. CT/Abdomen/Pelvis WITH Contrast IMPRESSION: Findings in keeping with acute cholecystitis. There is evidence of a 1.8 cm gallstone in the neck of the gallbladder. Electronically Signed: Endy Zelaya MD at 11:00 EST , Service support ,
[2020-12-06 12:06] LABS: Bedside Glucose 108 mg/dL (70-110)
--- NOTE | 2020-12-06 14:30 | GALL_PTH ---
PATIENT: JOELLE MERLOS LOC: MS3 U#:[id number] AGE/SX: 75/F ROOM: MS311 RE12/06/[address]: Dr. James Washington MD : 1945 BED: 1 DIS: 12/06/2020 SPEC #: [id number] RECD: 12/09/20 07:28 STATUS: [facility] #: [id number] MATEO: 12/06/20 14:[address]: James Washington DEPT: SURGICAL PATHOLOGY RECD BY: Dodie Murphy ENTERED: 12/09/20 08:22 SP TYPE: SHARI ARREOLA DR: Dr. Justine Trejo MD Tissues: Gallbladder, NOS Procedures: Surgery Specimen Level III HEADER OPERATION: Laparoscopic cholecystectomy with IOC PRE-OP DIAGNOSIS: Acute calculous cholecystitis TISSUE SUBMITTED: Gallbladder MICROSCOPIC DIAGNOSIS Gallbladder, cholecystectomy: Acute and chronic cholecystitis and cholelithiasis. Reactive epithelial changes. A pericystic benign lymph node with reactive changes. YESSENIA:gonzalez 12/10/2020 MICROSCOPIC DESCRIPTION Slides are reviewed. GROSS DESCRIPTION Received is one container labeled with the patient's name and designated gallbladder. The specimen consists of a gallbladder measuring 11 cm in length and up to 5 cm in diameter. The external surface is pink-sanders, smooth and glistening for the most part. Focally it is granular, hemorrhagic and contains cautery artifact. The gallbladder contains a small amount of sanders mucoid bile and four round to ovoid greenish-brown stones measuring in aggregate 3.5 x 3.5 x 2 cm and 1.5 to 2 cm in greatest dimension. Also present close to the cystic duct is an ovoid nodule measuring 0.8 cm in greatest dimension, most likely a possible lymph node. A sanders stone is also embedded in the gallbladder wall at the fundus of the gallbladder. Sections of the gallbladder wall reveal edematous cut surfaces. The gallbladder wall measures up to 1.2 cm in thickness. Downstream [employer]uring [employer]ician sections from the gallbladder and the cystic duct are submitted in two cassettes. / YESSENIA:gonzalez 12/09/20 TC:2 CPT: 20745
--- NOTE | 2020-12-06 14:30 | RAD_ITS ---
STUDY: INTRAOPERATIVE CHOLANGIOGRAM. REASON FOR EXAM: Female, 75 years old. PAIN, LAP CORNELIA FLUOROSCOPY TIME (if supplied): ( 22.5 seconds ) minutes/seconds. A single loop of 156 images were submitted. TECHNIQUE: An intraoperative glandular was performed by the surgeon. Imaging was submitted. COMPARISON: None. FINDINGS: The intrahepatic biliary ducts are unremarkable. The common bile duct is not dilated. No intraluminal filling defect is seen. Gallstones. RAD/Cholangiogram/ O R,Initial IMPRESSION: Gallstones. Normal intraoperative cholangiogram. Electronically Signed: Endy Zelaya MD at 15:35 EST , Service support ,
[2020-12-06] MEDS: Bupiv/Epi 0.25% 30 ML Vial (15:36)
--- NOTE | 2020-12-06 16:12 | PCM.OPRPT ---
Problem List (1) Acute calculous cholecystitis Status: Acute Report of Operation Date of Procedure: 12/06/20 Pre-Operative Diagnosis: Acute cholecystitis Post-Operative Diagnosis: Same Surgery/Procedure Performed:: Laparoscopic cholecystectomy with cholangiogram Description of Surgical Findings:: Inflamed gallbladder with large stones. Normal IOC. Specimen's removed: Gallbladder and contents Description of Procedure: After obtaining informed consent patient was brought back to the operating room. General anesthesia was induced. The abdomen was prepped and draped in usual sterile fashion. A small midline incision was made superior to the umbilicus and deepened to the level of fascia. The fascia was elevated and incised. Next the peritoneum was elevated and incised in the same fashion. Finger sweep was performed and the Saucedo trocar was placed into the abdomen. The balloon was inflated. The abdomen was inflated to 15 mmHg. Next a camera was introduced into the abdomen and the abdomen was inspected. Next under direct visualization three 5-mm ports were placed one subxiphoid and 2 subcostal. Next the gallbladder was elevated and retracted toward the right shoulder. The peritoneum was stripped from the gallbladder. The infundibulum was located and retracted laterally. Next the triangle of Calot was dissected and the cystic duct and cystic artery were identified. Cholangiograms were performed. The Rosas clamp was used to clamp across the infundibulum and the catheter needle was inserted into the gallbladder. Under fluoroscopy contrast was instilled into the gallbladder and the common duct, cystic duct as well as proximal hepatic ducts were identified. There was good filling of the duodenum. There were no filling defects noted in the common bile duct. The clamp was removed as well as the needle and the infundibulum was grasped once more. Three hemolock clips were placed across the cystic duct. The cystic duct was then divided leaving 2 clips on the stump. The cystic artery was clipped and divided in the same fashion. The hook cautery was then used to take the gallbladder off of the gallbladder bed. Hemostasis was obtained. Gallbladder fossa was irrigated and no active bleeding or bile leakage was noted. Next the camera was introduced in the subxiphoid port. An Endopouch bag was placed through the umbilical port and the gallbladder was placed into it. The gallbladder was then removed through the umbilical incision. The camera was then reinserted through the umbilical port. The gallbladder fossa was inspected once more and noted to be hemostatic with no leaking bile. The abdomen was suctioned dry. The 5 mm ports were removed under direct visualization. The umbilical port was then removed and the air was removed from the abdomen. Next using an 0 Vicryl suture the umbilical fascia was closed in a [id number] fashion. The umbilical port site was irrigated local anesthetic was administered to all the incisions. All the incisions were closed with interrupted subcuticular 4-0 Monocryl sutures followed by Steri-Strips and dressings. The patient was awoken and taken to PACU in stable condition. - Admit VTE Documentation VTE Mechan Device Prophylaxis: SCD's
--- NOTE | 2020-12-06 16:19 | DCINST_ITS ---
Discharge Diet: Light diet - advance as tolerated Discharge Activity: Return to Normal Activity, May Not Drive - for 2-3 days or while taking narcotic pain medicataions., - - Do not drive, work heavy equipment or sign legal documents for 24 hours. May shower in (days): 1 - with the bandage in place. Lifting Restrictions: 20 lbs for 2 weeks Additional Activity Instructions:: Pain medication may cause nausea. You should typically eat light foods as you take your pain medications. Pain medication may also cause constipation. If this is a problem for you, please discuss with your doctor. Call your doctor if your incision/area has: Continuous Slow Oozing, Sudden Increased Bleeding, Increased Pain/ Swelling, Increased Redness, Foul Smelling Discharge, Fever of 101 or Higher Call your doctor if you observe: Fever of 101 or Higher Suture Line Care: Avoid Pulling/Pushing, Avoid Pinching/Bending Additional Dressing/Incision Instructions:: Leave operative bandaids on for 2 days. When you remove dressing, leave Steri-Strips on until your follow-up appointment, or until the Steri-Strips fall off on their own. Allergies/Adverse Reactions: Allergies almond Allergy (Mild, Verified 12/06/20 04:30) Swelling blue dye Allergy (Mild, Verified 12/06/20 04:30) Itch Anesthesia Allergy (Mild, Uncoded 12/06/20 04:30) Vomiting Prolonged (12 hrs) Dairy Allergy (Mild, Uncoded 12/06/20 04:30) Bronchitis/Swelling Eggs Allergy (Mild, Uncoded 12/06/20 04:30) Bronchitis/swelling Peaches Allergy (Mild, Uncoded 12/06/20 04:30) Swelling Vasoline Allergy (Mild, Uncoded 12/06/20 04:30) Itching Medications to take at Discharge Calcium Citrate 600mg 600 mg PO DAILY 09/07/19 Citicoline 250mg 250 mg PO DAILY 09/07/19 Eye Drops 2 drop OPHTHALMIC TID 09/07/19 Homeopathic Remedy PO 09/07/19 diaplex mg PO DAILY 09/07/19 loratadine 10 mg tablet 10 mg PO DAILY 09/07/19 magnesium 250 mg tablet 250 mg PO BID tab 09/07/19 multivitamin 1 tab PO DAILY 09/07/19 omega-3 fatty acids 2,000 mg PO DAILY 09/07/19 ubiquinal 50mg 1 tab PO DAILY 09/07/19 vitamin d 125 mcg 5 drop PO DAILY 09/07/19 C-estradiol See Rx Instructions VAGINAL .weekly 12/21/19 meclizine 25 mg tablet 25 mg PO DAILY PRN #60 tab 11/19/20 vitamin A 2 drop PO DAILY 11/19/20 Oxycodone [Oxyir] 5 - 10 mg PO Q4H PRN PRN 5 Days #30 tab 12/06/20 The following prescriptions were given: Oxycodone [Oxyir] 5 - 10 mg PO Q4H PRN PRN 5 Days #30 tab PRN Reason: Pain Score 4-10/10 Transmission Status: Received by [facility] Primary Care Physician: Justine Trejo MD [Primary Care Provider] - Test Results: Test results from this visit will be discussed in further detail at your follow- up appointment, if applicable. Please Follow Up With: James Washington MD When: Please call to schedule 2 week follow up appointment. [phone]
[2020-12-06] MEDS: Acetaminophen 325 MG Tablet 650 MG PO (18:43)
--- NOTE | 2020-12-06 21:20 | NURSING ---
d/c pt 12/06 1919-neal rn took pt out the front door
== END 2020-12-06 19:20 | disposition home or self-care (01) ==
LOC: ED 06:36 → MS3 06:55
PROVIDERS: Admitting Provider Surgery; Emergency Provider Emergency Medicine; PCP Internal Medicine; Visit Provider Surgery
PROC: (CPT 47610; principal; 2020-12-06 14:10)
DX: K80.12 Calculus of gallbladder with acute and chronic cholecystitis without obstruction (principal); K21.9 Gastro-esophageal reflux disease without esophagitis; F32.9 Major depressive disorder, single episode, unspecified; Z79.899 Other long term (current) drug therapy; E66.9 Obesity, unspecified; Z68.30 Body mass index [BMI] 30.0-30.9, adult; R94.31 Abnormal electrocardiogram [ECG] [EKG]; G25.81 Restless legs syndrome
CPT/HCPCS: 47563; 71045; 74177; 74300; 76000; 76705; 80053; 82962; 83690; 84484; 85025; 87426; 88304; 93005; 96365; 96375; 99218; 99251; 99285; J7030; Q9967; A4216; G0378; G0463; J2405

== ENCOUNTER 2021-06-11 10:21 | Day surgery (SDC) | payer MEDICARE, OTHER, SELFPAY ==
[2021-05-13 13:09] VITALS: BMI 28.5
[2021-06-11] VITALS (7 sets, daily range): BP systolic 106–117; BP diastolic 48–65; PULSE 61–69; RESP 16; TEMP 36.2–36.9; O2SAT 100; BMI 27.3
[2021-06-11] MEDS: Lactated Ringers 1,000 ML 100 ML IV (10:35)
--- NOTE | 2021-06-11 10:46 | HP.PCM_ITS ---
History and Physical Date of Admission: 06/11/21 Intake Vital Signs 05/13/21 13:08 05/13/21 13:09 Height 5 ft 2.5 in Weight: 155 lb BMI 27.8 28.5 BP 126/72 H Blood Pressure Location Rt brachial Position Sitting Respiration 16 Intake Visit Reasons: C-Scope Chief Complaint: c-scope Android Developer Required: No Is patient in pain?: No Allergies almond Allergy (Mild, Verified 05/13/21 13:09) Swelling blue dye Allergy (Mild, Verified 05/13/21 13:09) Itch Anesthesia Allergy (Mild, Uncoded 05/13/21 13:09) Vomiting Dairy Allergy (Mild, Uncoded 05/13/21 13:09) Bronchitis/Swelling Eggs Allergy (Mild, Uncoded 05/13/21 13:09) Bronchitis/swelling Peaches Allergy (Mild, Uncoded 05/13/21 13:09) Swelling Vasoline Allergy (Mild, Uncoded 05/13/21 13:09) Itching Medications Calcium Citrate 600mg 600 mg PO DAILY 09/07/19 [History Confirmed 05/13/21] Citicoline 250mg 250 mg PO DAILY 09/07/19 [History Confirmed 05/13/21] Eye Drops 2 drp OPHTHALMIC TID 09/07/19 [History Confirmed 05/13/21] Homeopathic Remedy PO 09/07/19 [History Confirmed 05/13/21] diaplex mg PO DAILY 09/07/19 [History Confirmed 05/13/21] loratadine 10 mg tablet 10 mg PO DAILY 09/07/19 [History Confirmed 05/13/21] magnesium 250 mg tablet 250 mg PO BID tab 09/07/19 [History Confirmed 05/13/21] multivitamin 1 tab PO DAILY 09/07/19 [History Confirmed 05/13/21] omega-3 fatty acids 2,000 mg PO DAILY 09/07/19 [History Confirmed 05/13/21] ubiquinal 50mg 1 tab PO DAILY 09/07/19 [History Confirmed 05/13/21] vitamin d 125 mcg 5 drp PO DAILY 09/07/19 [History Confirmed 05/13/21] C-estradiol See Rx Instructions VAGINAL .weekly 12/21/19 [History Confirmed 05/13/21] meclizine 25 mg tablet 25 mg PO DAILY PRN #60 tab 11/19/20 [Rx Confirmed 05/13/21] vitamin A 2 drp PO DAILY 11/19/20 [History Confirmed 05/13/21] PFSH Medical History Acid reflux Back problem Hearing loss Hypoglycemia Multiple food allergies Osteopenia Surgical History History of cataract extraction History of D&C History of laparoscopic cholecystectomy (~12/2020) History of tonsillectomy History of tubal ligation Hx of cholecystectomy Family History Son Autoimmune disorder Mother Hypertension Kidney disease Stones, 1.5 Kidney removed CVA (cerebral vascular accident) Colon cancer Father Alzheimer disease Grandmother Alzheimer disease Social History number of children: 1 Smoking Status: Never smoker alcohol intake: current alcohol intake frequency: holidays/special occasions only substance use type: does not use what type of physical activity do you participate in: walking and weight training frequency: 3-4 times per week seatbelt use: always do you feel safe at home: Yes HPI HPI HPI: JOELLE MERLOS, is a 76 F who presents to the office today for surveillance col onoscopy. The patient had her last colonoscopy 5 years ago. She had polyps during that colonoscopy. She has had colonoscopies every 5 years with polyps. Patient has no family history of colon cancer. No abdominal pain or blood in the stool. ROS General General: No weight change, appetite, fatigue, colon cancer, breast cancer or weakness HEENT HEENT: Yes eye injury and eye surgery; No difficulty swallowing, swollen glands or hoarseness Endo Endocrine: No thyroid disease, diabetes mellitus, thyroid cancer, Hair loss, heat intolerance or cold intolerance Skin Skin: No rash or changing moles Breast Breast: No left breast lump, right breast lump, nipple discharge, breast pain, abnormal mammogram, abnormal US or breast enlargement Musc Musculoskeletal: Yes back problems; No arthritis, rheumatoid arthritis, gout or joint pain Cardio Cardiovascular: No murmur, pacemaker, heart disease, atrial fibrillation, high blood pressure, heart attack, heart stent, palpitations, shortness of breat with exertion or chest pain Psych Psychiatric: No depression, anxiety or hearing voices Resp Respiratory: No shortness of breath, No sleep apnea, No cough, No COPD, No asthma, No emphysema and No wheezing Gastro Gastrointestinal: No abdominal pain, No nausea or vomiting, No diarrhea, No constipation, No blood in stool, Yes acid reflux, No hemorrhoids, No ulcers, No gallbladder problem and No black,tarry stools Lit Hematologic: No blood thinners, No blood disorders, No bleeding, No anemia and No blood clots Neuro Neurologic: No system reviewed and no additional complaints, except as documented, No as per HPI, No abnormal gait, No abnormal hearing, No abnormal movements, No abnormal speech, No behavioral changes, No burning sensations, No confusion, No convulsions, No disequilibrium, No dizziness, No localized weakness, No frequent falls, No headache(s), No lack of coordination, No loss of vision, No memory loss, No numbness, No other visual disturbances, No radicular pain, No restless legs, No sensory deficit, No syncope, No tingling, No tremor(s), No weakness and No other Exam Const General: cooperative Orientation: alert and oriented x3 HENMT Head: normal to inspection Neck Neck: normal visual inspection and full ROM Chest Chest palpation & inspection: normal inspection of the chest Resp Effort & Inspection: normal respiratory effort Auscultation: clear to auscultation bilaterally Cardio Rate: regular rate Rhythm: regular rhythm GI Inspection: non-distended Palpation: soft and nontender Skin General: no rashes or lesions noted Neuro General: patient alert and patient oriented x3 Extrem General: full ROM Psych Appearance: grossly normal Mental Status: mental status grossly normal Assessment and Plan Assessment and Plan (1) History of colon polyps: Status: Acute Orders: Orders: Colonoscopy Today Plan - Dr. James Washington MD: Patient has history of colon polyps and requires colonoscopy for surveillance. I explained endoscopy in detail to the patient. I explained the risks including but not limited to stroke or heart attack with anesthesia, perforation of the GI tract, bleeding, infection. I explained that any of these could necessitate further emergency surgery. The patient understands and all questions were answered sufficiently. The patient wishes to proceed with procedure. James Washington MD Pager: [facility] [address] [place] [address], [address] [place] [address] Office: I have re-examined the patient. There are no clinical changes since date of exam.
--- NOTE | 2021-06-11 11:49 | OP.CCLET_ITS ---
06/11/2021 Justine Trejo MD [address] [place] [address] [place] [address] Re : Colonoscopy procedure for Meenu Gonzalez Dear Dr. Trejo This procedure was performed on Friday, June 11, 2021. My impressions and recommendations are as follows: Impressions : - The entire examined colon is normal on direct and retroflexion views. - No specimens collected. Recommendations : - Discharge patient to home. - Resume previous diet. - Continue present medications. - Repeat colonoscopy is not recommended due to current age (66 years or older) for screening purposes. My findings are described in the full procedure note, which is enclosed. If I can be of further assistance, please feel free to contact me at Doctor phone number(s): , Work: . Sincerely, James Washington MD 06/11/2021 11:48:30 AM This report has been signed electronically.
--- NOTE | 2021-06-11 11:49 | OP.COLON_ITS ---
Patient Name: Meenu Gonzalez Procedure Date: 06/11/2021 11:21 AM Date of : 1945 Age: 76 Procedure: Colonoscopy Indications: Surveillance: Personal history of adenomatous polyps on last colonoscopy 5 years ago Providers: James Washington MD Medicines: Monitored Anesthesia Care Patient Profile: This is a 76 year old female. Refer to note in patient chart for documentation of history and physical. Last Colonoscopy: 5 years ago. Complications: No immediate complications. Procedure: Pre-Anesthesia Assessment: - Prior to the procedure, a History and Physical was performed, and patient medications and allergies were reviewed. The patient's tolerance of previous anesthesia was also reviewed. The risks and benefits of the procedure and the sedation options and risks were discussed with the patient. All questions were answered, and informed consent was obtained. Prior Anticoagulants: The patient has taken no previous anticoagulant or antiplatelet agents. After reviewing the risks and benefits, the patient was deemed in satisfactory condition to undergo the procedure. After I obtained informed consent, the scope was passed under direct vision. Throughout the procedure, the patient's blood pressure, pulse, and oxygen saturations were monitored continuously. The Colonoscope was introduced through the anus and advanced to the cecum, identified by appendiceal orifice and ileocecal valve. The colonoscopy was performed without difficulty. The patient tolerated the procedure well. The quality of the bowel preparation was good. Scope In: 11:29:06 AM Scope Withdrawal Time 0 hours 6 minutes 28 seconds Scope Out: 11:43:28 AM Total Procedure Duration Time 0 hours 14 minutes 22 seconds Findings: The entire examined colon appeared normal on direct and retroflexion views. Impression: - The entire examined colon is normal on direct and retroflexion views. - No specimens collected. Recommendation: - Discharge patient to home. - Resume previous diet. - Continue present medications. - Repeat colonoscopy is not recommended due to current age (66 years or older) for screening purposes. Procedure Code(s): --- Professional --- G0105, Colorectal cancer screening; colonoscopy on individual at high risk Diagnosis Code(s): --- Professional --- Z86.010, Personal history of colonic polyps CPT copyright 2017 [employer]. All rights reserved. The codes documented in this report are preliminary and upon coder operator review may be revised to meet current compliance requirements. James Washington MD 06/11/2021 11:48:30 AM This report has been signed electronically. Number of Addenda: 0 Note Initiated On: 06/11/2021 11:21 AM
== END 2021-06-11 12:40 ==
LOC: EN 10:25 → AC 10:25
PROVIDERS: PCP Internal Medicine; Referring Provider Internal Medicine; Visit Provider Surgery
PROC: 0DJD8ZZ Inspection of Lower Intestinal Tract, Via Natural or Artificial Opening Endoscopic (ICD-10-PCS; CPT 45378; principal; 2021-06-11 11:25)
DX: Z12.11 Encounter for screening for malignant neoplasm of colon (principal); K21.9 Gastro-esophageal reflux disease without esophagitis; D64.9 Anemia, unspecified; H91.90 Unspecified hearing loss, unspecified ear; Z79.899 Other long term (current) drug therapy; Z86.010 Personal history of colon polyps; Z87.19 Personal history of other diseases of the digestive system
CPT/HCPCS: G0105; J7120; J2405

== ENCOUNTER → 2021-09-30 10:22 | Outpatient (CLI) | payer MEDICARE, OTHER, SELFPAY ==
[2021-09-30 12:02] LABS: Absolute Lymphocyte Count 0.89 X10^3/uL (0.83-4.51); Absolute Neutrophil Count 2.4 X10^3/uL (2.0-7.7); Basophil# 0.06 X10^3/uL; Basophil% 1.5 % (0-1); Eosinophil# 0.12 X10^3/uL; Hematocrit 38.8 % (37-47); Hemoglobin 12.4 g/dL (12.0-15.0); Lymphocyte # 0.89 X10^3/ul (0.83-4.51); Lymphocyte % 22.3 % (19-41); Mean Corpuscular Hgb 29.7 pg (27.0-32.0); Mean Corpuscular Volume 92.8 fL (81-99); Mean Platelet Vol. 11.2 fl (6.2-12.0); Monocyte# 0.56 X10^3/uL; NRBC Flagged by Analyzer 0 % (0-5); Neutrophil # 2.35 X10^3/uL (2.7-7.7); Neutrophil % 58.9 % (47-70); Platelet Count 242 K/mm3 (150-450); RBC Distribution Width CV 13.2 % (11.6-14.6); RBC Distribution Width SD 45.2 fl (35.1-43.9); Red Blood Count 4.18 M/mm3 (4.2-5.4)
[2021-09-30 12:24] LABS: ALB/GLOB Ratio 0.8 RATIO (0.9-2.4); AST(SGOT) 20 U/L (15-37); Alanine Aminotransfer ALT/SGPT 23 U/L (13-56); Albumin, Serum 3.1 g/dL (3.2-5.0); Alkaline Phosphatase 80 U/L (45-117); Anion Gap 3 (5-15); BUN 19 mg/dL (7-18); BUN/Creat Ratio 26.3 RATIO (10-20); Calcium,Total 9.3 mg/dL (8.5-10.1); Chloride 107 mmol/L (98-107); Cholesterol 192 mg/dL (200); Creatinine, Serum 0.72 mg/dL (0.55-1.02); EST Glomerular Filtration Rate 83 mL/min (>60); Est Glom Filt Rate - Afr Amer 101 mL/min (>60); Glucose 89 mg/dL (74-106); High Density Lipoprotein 95 mg/dL; Protein, Total 7.1 g/dL (6.4-8.2); Sodium Level 140 mmol/L (136-145); Triglycerides 43 mg/dL; Very Low Density Lipoprotein 9 mg/dL (5-40)
[2021-09-30 12:27] LABS: Vitamin D,25 Hydroxy 42.6 ng/mL
== END ==
PROVIDERS: PCP Internal Medicine; Visit Provider Internal Medicine
DX: E78.5 Hyperlipidemia, unspecified (principal); F32.9 Major depressive disorder, single episode, unspecified; R53.83 Other fatigue; M85.80 Other specified disorders of bone density and structure, unspecified site; E66.9 Obesity, unspecified
CPT/HCPCS: 36415; 80053; 80061; 82306; 85025

== ENCOUNTER → 2022-11-27 | Outpatient (CLI) | payer MEDICARE, SELFPAY ==
[2022-11-27 12:41] LABS: Absolute Lymphocyte Count 0.91 X10^3/uL (0.83-4.51); Basophil# 0.07 X10^3/uL; Basophil% 1.9 % (0-1); Eosinophil# 0.18 X10^3/uL; Eosinophils% 4.8 % (0-5); Hematocrit 36.5 % (37-47); Hemoglobin 11.5 g/dL (12.0-15.0); Lymphocyte # 0.91 X10^3/ul (0.83-4.51); Lymphocyte % 24.1 % (19-41); Mean Corp Hgb Conc 31.5 g/dL (32-36); Mean Corpuscular Volume 95.3 fL (81-99); Mean Platelet Vol. 11.5 fl (6.2-12.0); Monocyte# 0.56 X10^3/uL; Monocyte% 14.9 % (0-10); NRBC Flagged by Analyzer 0 % (0-5); Neutrophil # 2.04 X10^3/uL (2.7-7.7); Platelet Count 273 K/mm3 (150-450); RBC Distribution Width CV 14.2 % (11.6-14.6); RBC Distribution Width SD 49.5 fl (35.1-43.9); Red Blood Count 3.83 M/mm3 (4.2-5.4); White Blood Count 3.8 K/mm3 (4.4-11.0)
[2022-11-27 12:50] LABS: ALB/GLOB Ratio 0.8 RATIO (0.9-2.4); AST(SGOT) 24 U/L (15-37); Alanine Aminotransfer ALT/SGPT 26 U/L (13-56); Albumin, Serum 3.1 g/dL (3.2-5.0); Alkaline Phosphatase 78 U/L (45-117); Anion Gap 4 (5-15); BUN 13 mg/dL (7-18); BUN/Creat Ratio 17.9 RATIO (10-20); Calcium,Total 9.1 mg/dL (8.5-10.1); Chloride 104 mmol/L (98-107); Creatinine, Serum 0.73 mg/dL (0.55-1.02); EST Glomerular Filtration Rate 82 mL/min (>60); Est Glom Filt Rate - Afr Amer 100 mL/min (>60); Glucose 87 mg/dL (74-106); Potassium 4.3 mmol/L (3.5-5.1); Protein, Total 7.1 g/dL (6.4-8.2); Sodium Level 142 mmol/L (136-145)
[2022-11-27 12:52] LABS: Vitamin D,25 Hydroxy 39.3 ng/mL
[2022-11-30 08:28] LABS: Ferritin 12 ng/mL (8-252); Iron 88 ug/dL (50-170); Iron Binding Capacity,Total 383 ug/dL (250-450)
== END | disposition home or self-care (01) ==
LOC: BIMLAB 08:47
PROVIDERS: PCP Internal Medicine; Referring Provider Internal Medicine; Visit Provider Internal Medicine
DX: M85.80 Other specified disorders of bone density and structure, unspecified site (principal); D64.9 Anemia, unspecified
CPT/HCPCS: 36415; 80053; 82306; 82728; 83540; 83550; 85025

== ENCOUNTER → 2022-12-01 | Outpatient (CLI) | payer MEDICARE, SELFPAY ==
[2022-12-01 12:34] LABS: Vitamin B12 335 pg/mL (211-911)
== END | disposition home or self-care (01) ==
LOC: BIMLAB 10:25
PROVIDERS: PCP Internal Medicine; Referring Provider Internal Medicine; Visit Provider Internal Medicine
DX: D64.9 Anemia, unspecified (principal)
CPT/HCPCS: 36415; 82607

== ENCOUNTER → 2022-12-15 | Outpatient (CLI) | payer MEDICARE, SELFPAY ==
--- NOTE | 2022-12-15 14:46 | BI_ITS ---
MAMMOGRAPHY - BILATERAL SCREENING REASON FOR EXAM: Female, 77 years old. Routine annual screening examination. PERTINENT HISTORY: Non-contributory. TECHNIQUE: Digital bilateral breast minoo (3D mammographic acquisition) in the CC and MLO projections. 2-D mediolateral oblique (MLO) and craniocaudad (CC) views of both breasts were obtained. CAD: Full Field Digital Mammography with Computer Added Detection was performed. COMPARISON: Comparison is made with prior study dated 12/14/2019 01/10/2019. FINDINGS: Breast Composition: The breasts are heterogeneously dense, which may obscure small masses. There are no dominant masses or suspicious calcifications. No other significant abnormalities are identified. There has been no significant change since the prior study. BI/SCRN MAMM (CAD)W/MINOO BILAT IMPRESSION: Stable bilateral screening mammogram. Yearly follow-up mammogram recommended. (A) ASSESSMENT CATEGORY: BIRADS Category 1: Negative. A letter regarding these results will be sent to the patient by the facility within 30 days. Approximately 10% of breast cancers are not detected by mammography. A normal mammogram should not delay biopsy of a clinically suspicious abnormality. [id number] Electronically Signed: Endy Zelaya MD at 9:18 EST ,
--- NOTE | 2022-12-15 14:57 | BD_ITS ---
STUDY: DUAL ENERGY X-RAY ABSORPTIOMETRY / DXA REASON FOR EXAM: Female, 77 years old. Osteopenia TECHNIQUE: Bone Mineral Density (BMD) measurements of lumbar spine and bilateral hips were obtained. COMPARISON: Comparison is made with prior study dated December 14, 2019. FINDINGS: Lumbar Spine (L1-L4): g/cm2 (0.964) / T-score (-0.8) / Z-score (1.8) Findings are suggestive of normal bone density with a low fracture risk. Left Femur Total: g/cm2 (0.761) / T-score (-1.5) / Z-score (0.5) Left Femoral Neck: g/cm2 (0.637) / T-score (-1.9) / Z-score (0.3) Right Femur Total: g/cm2 (0.703) / T-score (-2.0) / Z-score (0.0) Right Femoral Neck: g/cm2 (0.645) / T-score (-1.8) / Z-score (0.4) The T-Scores on the most recent prior examination were: Lumbar Spine (L1-L4): There has been worsening of bone density since the previous examination. Left Femur Total: which represents an improvement of 6%. Right Femur Total: which represents an improvement of 6.6%. BD/Dexa Bone Density Study IMPRESSION: The patient is considered osteopenic as outlined below according to World Shank[employer] Organization (WHO) criteria with a moderate fracture risk. There has been improvement of bone density since the previous examination. Reference Information: The T-score is the number of standard deviations above or below the standard which is normal for young adults at their peak bone mineral density. The World Health Organization (WHO) interprets the T-scores as follows: Above -1 Normal bone density Between -1 and -2.5 Osteopenia Equal to / or below -2.5 Osteoporosis As a practical clinical guideline, osteopenia may be graded as follows: Mild -1 through -1.5 Moderate -1.6 through -2.0 Severe -2.1 through -2.4 The Z-score is the number of standard deviations above or below age-matched controls. A Z-score of less than -1.5 would be considered abnormal. References: 1. NIH Osteoporosis and Related Bone Diseases www osteo.org 2. International Society for Clinical Densitometry www iscd.org 3. National Osteoporosis Foundation www nof.org Electronically Signed: Endy Zelaya MD at 13:33 EST ,
== END | disposition home or self-care (01) ==
PROVIDERS: PCP Internal Medicine; Visit Provider Internal Medicine
DX: Z12.31 Encounter for screening mammogram for malignant neoplasm of breast (principal); Z78.0 Asymptomatic menopausal state
CPT/HCPCS: 77063; 77067; 77080

== ENCOUNTER 2023-02-19 13:38 | Emergency (ER) | payer MEDICARE, SELFPAY ==
[2023-02-19 13:39] VITALS: BP 147/61; PULSE 79; RESP 18; TEMP 35.6; O2SAT 98; BMI 27.4
--- NOTE | 2023-02-19 14:48 | EKG12_ITS ---
Test Reason : NEAR SYNCOPE Blood Pressure : / mmHG Vent. Rate : 069 BPM Atrial Rate : 069 BPM P-R Int : 204 ms QRS Dur : 078 ms QT Int : 394 ms P-R-T Axes : 079 -02 051 degrees QTc Int : 422 ms Sinus rhythm with Premature atrial complexes Otherwise normal ECG Confirmed by ELTON PALOMARES, VERONICA ([id number]), production editor LEONARDO RODGERS ([id number]) on 02/22/2023 2:40:22 PM Referred By: YO/ANKITA Confirmed By:ANGELO CONDE MD
--- NOTE | 2023-02-19 14:52 | EX.ED.DYSGE1 ---
HPI <PAKO Polk - Last Filed: 02/19/23 18:26> History of Present Illness Chief Complaint: Dizziness Narrative Narrative: 78-year-old female with history of depression, hyperlipidemia, acid reflux who presents to the emergency department with 2 near syncopal episodes. Patient states that 3 days ago, she did give blood secondary to her being O+. Patient states that the next day, she was cooking, she was grating potatoes when she felt lightheaded, as she might pass out she went and laid on the couch. The next day, the patient was walking around her grass doing yard work, she then felt near syncopal at that time and had to go and lay on the floor. She called her PCPs office today, they recommend she go to the emergency department. She is concerned for cardiac issue secondary to having family history. She denies any chest pain. Patient is asymptomatic at this time. She does state over the last 6 months to feel slight fatigue. [facility] <PAKO Polk - Last Filed: 02/19/23 18:26> [facility] Medical History (Updated 02/19/23 @ 18:26 by PAKO Polk) Acid reflux Anemia Back problem Fatigue Gastric reflux Health care maintenance Hearing loss History of edema History of stress test Hyperlipidemia Hypoglycemia Injury of back Migraine headache Multiple food allergies Non-smoker Osteopenia Wears glasses Home Medications Calcium Citrate 600mg 600 mg PO DAILY supplement 09/07/19 [History Last Taken 12/05/20] Eye Drops 2 drp ophthalmic (eye) BID dry eyes 09/07/19 [History Last Taken 12/05/20] Homeopathic Remedy 2 drp PO .Q2WEEK 09/07/19 [History Last Taken Unknown] diaplex 1 cap PO DAILY 09/07/19 [History Last Taken Unknown] loratadine 10 mg tablet 10 mg PO DAILY allergies 09/07/19 [History Last Taken 12/05/20] magnesium 250 mg tablet 250 mg PO BID supplement 09/07/19 [History Last Taken 12/05/20] multivitamin 1 tab PO DAILY supplement 09/07/19 [History Last Taken 12/06/20 -1] omega-3 fatty acids 2,000 mg PO DAILY supplement 09/07/19 [History Last Taken 12/05/20] ubiquinal 50mg 1 tab PO DAILY supplement 09/07/19 [History Last Taken 12/05/20] vitamin d 125 mcg 5 drp PO DAILY supplement 09/07/19 [History Last Taken 12/05/20] C-estradiol See Rx Instructions vaginal .weekly replacement 12/21/19 [History Last Taken 12/05/20] vitamin A 2 drp PO DAILY supplement 11/19/20 [History Last Taken 12/05/20] Magnesium L-Threonate PO 09/30/21 [History Last Taken Unknown] Rutin PO 11/27/22 [History Last Taken Unknown] ascorbate calcium (vitamin C) 500 mg tablet 500 mg PO DAILY 11/27/22 [History Last Taken Unknown] Allergy/AdvReac Type Severity Reaction Status Date / Time almond Allergy Mild Swelling Verified 02/19/23 13:39 blue dye Allergy Mild Itch Verified 02/19/23 13:39 egg [eggs] Allergy Mild Swelling Verified 02/19/23 13:39 milk [dairy] Allergy Mild Swelling Verified 02/19/23 13:39 peach Allergy Mild Swelling Verified 02/19/23 13:39 petrolatum,white Allergy Mild Itching Verified 02/19/23 13:39 [From Petroleum Jelly] Anesthetics - Amide Type - AdvReac Vomiting Verified 02/19/23 13:39 Select A [anesthesia] Family History Son Autoimmune disorder Mother Hypertension Kidney disease Stones, 1.5 Kidney removed CVA (cerebral vascular accident) Colon cancer Father Alzheimer disease Grandmother Alzheimer disease Surgical History History of cataract extraction History of D&C History of laparoscopic cholecystectomy (~12/2020) History of tonsillectomy History of tubal ligation Hx of cholecystectomy Social History number of children: 1 Smoking Status: Never smoker alcohol intake: current alcohol intake frequency: holidays/special occasions only substance use type: does not use what type of physical activity do you participate in: walking and weight training frequency: 3-4 times per week seatbelt use: always do you feel safe at home: Yes ROS <PAKO Polk - Last Filed: 02/19/23 18:26> ROS ED ROS Narrative Constitutional: Negative for fever, chills, weight loss, weakness Eyes: Negative for vision loss, vision change, double vision ENT: Negative for any sore throat, ear pain, congestion Cardiovascular: Negative for any chest pain, tightness, palpitations Respiratory: Negative for any cough, sputum production, hemoptysis, dyspnea, dyspnea on exertion, orthopnea Gastrointestinal: Negative for any abdominal pain, nausea, vomiting, diarrhea, constipation, blood in stool, blood in vomit : Negative for any urinary frequency, dysuria, retention, blood in urine Muscle skeletal: Negative for any muscle joint pain, stiffness, myalgias, arthralgias, neck pain, back pain Neurological: Negative for any headache, numbness or tingling, dizziness. Positive for near syncope x2 Skin: Negative for any rashes, lumps, itching, abrasions, lacerations Psychiatric: Negative for any depression, anxiety, stress, suicidal ideation, homicidal ideation Hematologic: Negative for any easy bruising, excessive bruising, easy bleeding Allergies: Negative for any eczema, hives, rash EXAM <PAKO Polk - Last Filed: 02/19/23 18:26> Physical Exam Narrative Exam Narrative: Vital signs reviewed. Patient is asymptomatic at this time. Patient vital signs are stable. HEET: Head normocephalic atraumatic, TMs clear bilaterally. Posterior pharynx is clear, moist mucous membranes. Nares clear bilaterally. Neck: Supple with no lymphadenopathy or tenderness. No signs of meningismus, negative jolt sign. Cardiac: Regular rate and rhythm no murmurs gallops or rubs, equal peripheral pulses bilaterally. Respiratory: Lungs clear to auscultation bilaterally. No chest tenderness. Abdomen: Soft, nontender, nondistended. No abdominal bruit or pulsatile masses. No hepatosplenomegaly Extremities: No peripheral edema, no signs of gross trauma or deformity. Active full range of motion of all extremities. Neuro: Cranial nerves II through XII intact, no focal neurological deficits. Skin: Clean dry and intact with no rash, purpura, petechiae, vesicles or pustules. Backs/flank: No CVA tenderness, no midline spinal tenderness, no deformity. Psych: Normal mood and affect. No SI, HI or acute psychosis. Const Vital Signs: 02/19/23 13:39 02/19/23 14:37 02/19/23 15:18 Temperature 96.1 F L Temperature Source Temporal Pulse Rate 79 Pulse Rate [Lying] 70 Pulse Rate [Sitting (for 1 minute prior to obtaining)] 63 Pulse Rate [Standing (for 1 minute prior to obtaining)] 68 Respiratory Rate 18 Respiratory Pattern Normal Blood Pressure 147/61 H Blood Pressure [Lying] 120/69 Blood Pressure [Sitting (for 1 minute prior to obtaining)] 124/62 H Blood Pressure [Standing (for 1 minute prior to obtaining)] 107/82 H Blood Pressure Mean 89 Blood Pressure Mean [Lying] 86 Blood Pressure Mean [Sitting (for 1 minute prior to obtaining)] 82 Blood Pressure Mean [Standing (for 1 minute prior to obtaining)] 90 Pulse Ox 98 Positive well nourished and well developed General Appearance ED: well developed <Dr. Redd Womack MD - Last Filed: 02/19/23 16:08> Physical Exam Const Vital Signs: 02/19/23 13:39 02/19/23 14:37 02/19/23 15:18 Temperature 96.1 F L Temperature Source Temporal Pulse Rate 79 Pulse Rate [Lying] 70 Pulse Rate [Sitting (for 1 minute prior to obtaining)] 63 Pulse Rate [Standing (for 1 minute prior to obtaining)] 68 Respiratory Rate 18 Respiratory Pattern Normal Blood Pressure 147/61 H Blood Pressure [Lying] 120/69 Blood Pressure [Sitting (for 1 minute prior to obtaining)] 124/62 H Blood Pressure [Standing (for 1 minute prior to obtaining)] 107/82 H Blood Pressure Mean 89 Blood Pressure Mean [Lying] 86 Blood Pressure Mean [Sitting (for 1 minute prior to obtaining)] 82 Blood Pressure Mean [Standing (for 1 minute prior to obtaining)] 90 Pulse Ox 98 MDM <PAKO Polk - Last Filed: 02/19/23 18:26> [facility] Lab Data Attestation: I reviewed the patient's lab results. Labs: Laboratory Results - last 24 hr 02/19/23 02/19/23 02/19/23 15:15 15:15 17:45 WBC 5.9 RBC 3.52 L Hgb 10.7 L Hct 32.4 L MCV 92.0 MCH 30.4 MCHC 33.0 RDW Std Deviation 47.4 H RDW Coeff of Samson 14.1 Plt Count 209 MPV 10.7 Immature Gran % (Auto) 0.300 Neut % (Auto) 69.8 Lymph % (Auto) 16.9 L [place] % (Auto) 10.8 H Eos % (Auto) 1.2 Baso % (Auto) 1.0 Absolute Neuts (auto) 4.1 Absolute Lymphs (auto) 1.00 Nucleated RBC % 0 Sodium 142 Potassium 3.8 Chloride 106 Carbon Dioxide 31.0 Anion Gap 5 BUN 16 Creatinine 0.71 Estim Creat Clear Calc 38.35 Est GFR (MDRD) Af Amer 102 Est GFR (MDRD) Non-Af 84 BUN/Creatinine Ratio 22.5 H Glucose 110 H Calcium 9.0 Troponin I High Sens 8 9 Radiography Diagnostic Testing: Clinical Impression(s) from Imaging Studies Chest X-Ray 02/19/23 15:42 IMPRESSION: Degenerative changes, as described above. No demonstrated acute cardiopulmonary process. No major interval change. Electronically Signed: Silviano Baumann DO at 16:32 EDT Reading Location ID and State: [address] [place] [address] Tel [phone], Service support , EKG Sinus rhythm : Attestation: I personally reviewed and interpreted this EKG as follows: Comments: Sinus rhythm with premature atrial complexes, rate of 69 bpm NC interval 204 ms, QRS duration 78 ms, no acute ST elevation, no acute infarct noted. Treatment and Re-Evaluation :: All radiologic examinations were read, reviewed by the emergency department attending. From these reads, a plan of care will be put in place. Patient appears generally well, patient appears nontoxic, vital signs are stable. Patient presents to the emergency department with complaints of 2 episodes of near syncope post giving blood 3 days ago. Both of these near syncopal episodes when the patient was standing straight up, and moving. Patient denies any chest pain or shortness of breath. Patient did receive a two-view chest x-ray, this showed degenerative changes however no acute cardiopulmonary process. Patient's laboratory values show slight anemia with a hemoglobin of 10.7, in November 2022 she was 11.5. Patient's initial troponin was 8, this was negative, she will receive a second troponin. At this time, there is no evidence suspect any acute ACS, DC. No evidence of any pneumonia. There is no evidence of any CVS or stroke. Patient appears generally well. If the patient does have a negative second troponin, I do believe that this is secondary to patient giving blood. Patient and son are both happy with the plan of care they will follow-up outpatient. All questions answered. Patient's second troponin was negative. At this time there is no evidence of an ACS, DC. Patient will be discharged home. Likely near syncope is secondary to giving blood 4 days ago. Patient stable for discharge <Dr. Redd Womack MD - Last Filed: 02/19/23 16:08> [facility] Narrative Medical decision making narrative: I have personally performed a face to face assessment of the patient and have reviewed the [facility] Note. I performed a substantive portion of the visit including all aspects of the following. My bills findings include: History: Patient presents with 2 near syncopal episodes. On Wednesday afternoon she donated blood. she was standing up peeling potatoes at the counter. She was standing with her knees locked for period of time. She then started to get lightheaded. She laid down on the ground and symptoms resolved. She was able to continue her activity. She never got dyspneic, focal neurologic deficit or focal weakness or numbness, chest pain or palpitations. She just felt overall weak. She had that episode happen again today but not quite as bad. She contacted her physician who referred her in here. She overall feels well now. She does report that she has always had a problem with her blood pressure being on the lower side. She does not have high blood pressure. Exam: Patient awake alert no acute distress. Very pleasant. HEENT shows minimally dry mucous membranes but no sign of trauma. No thrush. Lungs are clear bilaterally no pain with a deep breath. Saturations are normal at about 98 to 99% on room air showing no hypoxia. Heart rate while laying down is about 75 or 80. Regular. I do not hear a murmur. Peripheral pulses are equal and normal. Abdomen is soft and completely nontender. I feel no pulsatile mass I hear no bruit. Extremities show no edema cords or asymmetry or swelling. Medical Decision Making: Patient's symptoms are likely caused by combination of hydration donating blood dietary intake and positioning as in standing for a while. But we will do medical work-up make sure we do not see any marked abnormalities. Patient would very much like to go home. As long as her work-up shows no acute illness requiring admission I think that is reasonable. Lab Data Labs: Laboratory Results - last 24 hr 02/19/23 02/19/23 02/19/23 15:15 15:15 17:45 WBC 5.9 RBC 3.52 L Hgb 10.7 L Hct 32.4 L MCV 92.0 MCH 30.4 MCHC 33.0 RDW Std Deviation 47.4 H RDW Coeff of Samson 14.1 Plt Count 209 MPV 10.7 Immature Gran % (Auto) 0.300 Neut % (Auto) 69.8 Lymph % (Auto) 16.9 L [place] % (Auto) 10.8 H Eos % (Auto) 1.2 Baso % (Auto) 1.0 Absolute Neuts (auto) 4.1 Absolute Lymphs (auto) 1.00 Nucleated RBC % 0 Sodium 142 Potassium 3.8 Chloride 106 Carbon Dioxide 31.0 Anion Gap 5 BUN 16 Creatinine 0.71 Estim Creat Clear Calc 38.35 Est GFR (MDRD) Af Amer 102 Est GFR (MDRD) Non-Af 84 BUN/Creatinine Ratio 22.5 H Glucose 110 H Calcium 9.0 Troponin I High Sens 8 9 Radiography Diagnostic Testing: Clinical Impression(s) from Imaging Studies Chest X-Ray 02/19/23 15:42 IMPRESSION: Degenerative changes, as described above. No demonstrated acute cardiopulmonary process. No major interval change. Electronically Signed: Silviano Baumann DO at 16:32 EDT Reading Location ID and State: [address] [place] [address] Tel [phone], Service support , Discharge Plan Triage Chief Complaint: Dizziness Other Complaint: Fatigue ED Midlevel Provider: Germain Christensen ED Provider: Redd Womack Dx/Rx/DC Orders Clinical Impression: Near syncope Instructions: Causes of Syncope, ED Near-Fainting, Uncertain Cause Prescriptions: No Action vitamin d 125 mcg 5 drp PO DAILY Calcium Citrate 600mg 600 mg PO DAILY multivitamin Tablet 1 tab PO DAILY omega-3 fatty acids capsule capsule 2,000 mg PO DAILY diaplex 1 cap PO DAILY magnesium 250 mg tablet 250 mg PO BID loratadine 10 mg tablet 10 mg PO DAILY ubiquinal 50mg 1 tab PO DAILY Eye Drops 2 drp OPHTHALMIC BID Homeopathic Remedy 2 drp PO .Q2WEEK C-estradiol See Rx Instructions VAGINAL .weekly Label Comments: unwrap and insert one suppository vaginally once weekly Rx Instructions: 1.5mg vaginal .weekly; Magnesium L-Threonate PO Rx Instructions: 2000mg BID Rutin PO Rx Instructions: 125mg 2 x a week vitamin A 2 drp PO DAILY ascorbate calcium (vitamin C) 500 mg tablet 500 mg PO DAILY Primary Care Provider: Justine Trejo Referrals: Justine Trejo MD [Primary Care Provider] - Disposition Disposition: Home, Self Care
[2023-02-19 15:18] VITALS: BP 107/82; BP 120/69; BP 124/62; PULSE 63; PULSE 68; PULSE 70
[2023-02-19 15:19] LABS: Absolute Neutrophil Count 4.1 X10^3/uL (2.0-7.7); Basophil# 0.06 X10^3/uL; Eosinophil# 0.07 X10^3/uL; Eosinophils% 1.2 % (0-5); Hematocrit 32.4 % (37-47); Hemoglobin 10.7 g/dL (12.0-15.0); Lymphocyte % 16.9 % (19-41); Mean Corpuscular Hgb 30.4 pg (27.0-32.0); Mean Platelet Vol. 10.7 fl (6.2-12.0); Monocyte# 0.64 X10^3/uL; Monocyte% 10.8 % (0-10); NRBC Flagged by Analyzer 0 % (0-5); Neutrophil # 4.13 X10^3/uL (2.7-7.7); Neutrophil % 69.8 % (47-70); Platelet Count 209 K/mm3 (150-450); RBC Distribution Width CV 14.1 % (11.6-14.6); RBC Distribution Width SD 47.4 fl (35.1-43.9); Red Blood Count 3.52 M/mm3 (4.2-5.4); White Blood Count 5.9 K/mm3 (4.4-11.0)
[2023-02-19] MEDS: 0.9% Normal Saline 1,000 ML 1000 ML IV (15:26)
[2023-02-19 15:42] LABS: Anion Gap 5 (5-15); BUN 16 mg/dL (7-18); BUN/Creat Ratio 22.5 RATIO (10-20); Chloride 106 mmol/L (98-107); Creatinine, Serum 0.71 mg/dL (0.55-1.02); EST Glomerular Filtration Rate 84 mL/min (>60); Est Glom Filt Rate - Afr Amer 102 mL/min (>60); Estimated Creatinine Clearance 38.35 ml/min; Glucose 110 mg/dL (74-106); Potassium 3.8 mmol/L (3.5-5.1); Sodium Level 142 mmol/L (136-145); Troponin-I HS (w/2H Reflex) 8 pg/mL (3.0-54.0)
--- NOTE | 2023-02-19 15:42 | RAD_ITS ---
STUDY: X-RAY CHEST REASON FOR EXAM: Female, 78 years old. Chest pain. Near syncopal episode 2 days ago after giving blood. Fatigue. TECHNIQUE: PA and lateral views of the chest. COMPARISON: December 06, 2020. FINDINGS: The lungs are clear and expanded. There is no demonstrated pleural abnormality. Normal size heart. Normal mediastinum and jesús. Normal visualized pulmonary arteries. Normal visualized aortic arch and descending thoracic aorta. There are diffuse degenerative changes of the visualized thoracic spine. There is degenerative osteoarthritis of the bilateral shoulders. There is no demonstrated abnormality of the visualized soft tissue structures of the upper abdomen. RAD/Chest PA and Lateral IMPRESSION: Degenerative changes, as described above. No demonstrated acute cardiopulmonary process. No major interval change. Electronically Signed: Silviano Baumann DO at 16:32 EDT ,
[2023-02-19 17:17] LABS: Reflex Troponin-HS? (from REC) Y
[2023-02-19 18:15] LABS: Troponin-I HS 9 pg/mL (3.0-54.0)
== END 2023-02-19 18:36 | disposition home or self-care (01) ==
PROVIDERS: Nurse Practitioner; Emergency Provider Emergency Medicine; PCP Internal Medicine; Visit Provider Emergency Medicine
DX: R55 Syncope and collapse (principal); E78.5 Hyperlipidemia, unspecified; Z79.899 Other long term (current) drug therapy; F32.A Depression, unspecified
CPT/HCPCS: 71046; 80048; 84484; 85025; 93005; 96360; 99283; J7030; A4216

== ENCOUNTER → 2023-03-12 | Outpatient (CLI) | payer MEDICARE, SELFPAY ==
[2023-03-12 12:12] LABS: Absolute Lymphocyte Count 0.88 X10^3/uL (0.83-4.51); Absolute Neutrophil Count 2.4 X10^3/uL (2.0-7.7); Basophil# 0.05 X10^3/uL; Basophil% 1.2 % (0-1); Eosinophil# 0.15 X10^3/uL; Eosinophils% 3.7 % (0-5); Hematocrit 35.2 % (37-47); Hemoglobin 11.4 g/dL (12.0-15.0); Lymphocyte # 0.88 X10^3/ul (0.83-4.51); Lymphocyte % 21.9 % (19-41); Mean Corp Hgb Conc 32.4 g/dL (32-36); Mean Corpuscular Hgb 30.8 pg (27.0-32.0); Mean Corpuscular Volume 95.1 fL (81-99); Mean Platelet Vol. 11.7 fl (6.2-12.0); Monocyte% 12.5 % (0-10); NRBC Flagged by Analyzer 0 % (0-5); Neutrophil # 2.42 X10^3/uL (2.7-7.7); Neutrophil % 60.5 % (47-70); Platelet Count 243 K/mm3 (150-450); RBC Distribution Width CV 14.2 % (11.6-14.6); RBC Distribution Width SD 49.5 fl (35.1-43.9)
[2023-03-12 12:49] LABS: Vitamin B12 840 pg/mL (211-911)
[2023-03-12 13:00] LABS: Iron 70 ug/dL (50-170); Iron Binding Capacity,Total 370 ug/dL (250-450); PERCENT IRON SATURATION 18.9 % (15.0-55.0)
== END | disposition home or self-care (01) ==
LOC: BIMLAB 08:52
PROVIDERS: PCP Nurse Practitioner Family; Referring Provider Nurse Practitioner Family; Visit Provider Nurse Practitioner Family
DX: F32.A Depression, unspecified (principal); D64.9 Anemia, unspecified
CPT/HCPCS: 36415; 82607; 83540; 83550; 85025

== ENCOUNTER → 2023-09-29 | Outpatient (CLI) | payer MEDICARE, SELFPAY ==
[2023-09-29 12:19] LABS: Basophil# 0.06 X10^3/uL; Basophil% 1.6 % (0-1); Eosinophil# 0.21 X10^3/uL; Eosinophils% 5.7 % (0-5); Hematocrit 39.1 % (37-47); Hemoglobin 12.7 g/dL (12.0-15.0); Lymphocyte % 24.3 % (19-41); Mean Corp Hgb Conc 32.5 g/dL (32-36); Mean Corpuscular Hgb 31.4 pg (27.0-32.0); Mean Corpuscular Volume 96.5 fL (81-99); Mean Platelet Vol. 11.1 fl (6.2-12.0); Monocyte# 0.56 X10^3/uL; Monocyte% 15.1 % (0-10); NRBC Flagged by Analyzer 0 % (0-5); Neutrophil # 1.96 X10^3/uL (2.7-7.7); Platelet Count 269 K/mm3 (150-450); RBC Distribution Width CV 13.4 % (11.6-14.6); RBC Distribution Width SD 47.7 fl (35.1-43.9); Red Blood Count 4.05 M/mm3 (4.2-5.4); White Blood Count 3.7 K/mm3 (4.4-11.0)
[2023-09-29 12:48] LABS: Vitamin D,25 Hydroxy 38.8 ng/mL
[2023-09-29 13:03] LABS: ALB/GLOB Ratio 0.8 RATIO (0.9-2.4); AST(SGOT) 27 U/L (15-37); Alanine Aminotransfer ALT/SGPT 25 U/L (13-56); Albumin, Serum 3.3 g/dL (3.2-5.0); Alkaline Phosphatase 83 U/L (45-117); Anion Gap 3 (5-15); BUN 11 mg/dL (7-18); BUN/Creat Ratio 13.8 RATIO (10-20); Calcium,Total 8.9 mg/dL (8.5-10.1); Chloride 106 mmol/L (98-107); EST Glomerular Filtration Rate 74 mL/min (>60); Est Glom Filt Rate - Afr Amer 90 mL/min (>60); Ferritin 33 ng/mL (8-252); Globulin 3.9 g/dL (2.2-4.2); Glucose 86 mg/dL (74-106); Iron 85 ug/dL (50-170); Iron Binding Capacity,Total 335 ug/dL (250-450); Potassium 4.8 mmol/L (3.5-5.1); Protein, Total 7.2 g/dL (6.4-8.2); Sodium Level 139 mmol/L (136-145)
== END | disposition home or self-care (01) ==
LOC: BIMLAB 09:42
PROVIDERS: PCP Internal Medicine; Visit Provider Internal Medicine
DX: D64.9 Anemia, unspecified (principal); M85.80 Other specified disorders of bone density and structure, unspecified site
CPT/HCPCS: 36415; 80053; 82306; 82728; 83540; 83550; 85025

== ENCOUNTER → 2023-12-29 | Outpatient (CLI) | payer MEDICARE, SELFPAY ==
--- NOTE | 2023-12-29 12:09 | BI_ITS ---
MAMMOGRAPHY - BILATERAL SCREENING REASON FOR EXAM: Female, 78 years old. Routine annual screening examination. PERTINENT HISTORY: Non-contributory. TECHNIQUE: Digital bilateral breast minoo (3D mammographic acquisition) in the CC and MLO projections. 2-D mediolateral oblique (MLO) and craniocaudad (CC) views of both breasts were obtained. CAD: Full Field Digital Mammography with Computer Added Detection was performed. COMPARISON: Comparison is made with prior study dated December 07, 2022 and 05/13/2020. FINDINGS: Breast Composition: The breasts are heterogeneously dense, which may obscure small masses. There are no dominant masses or suspicious calcifications. No other significant abnormalities are identified. There has been no significant change since the prior study. BI/SCRN MAMM (CAD)W/MINOO BILAT IMPRESSION: Stable bilateral screening mammogram. Yearly follow-up mammogram recommended. (A) ASSESSMENT CATEGORY: BIRADS Category 1: Negative. A letter regarding these results will be sent to the patient by the facility within 30 days. Approximately 10% of breast cancers are not detected by mammography. A normal mammogram should not delay biopsy of a clinically suspicious abnormality. [id number] Electronically Signed: Endy Zelaya MD at 15:35 EDT ,
== END | disposition home or self-care (01) ==
LOC: OPBI 12:09
PROVIDERS: PCP Internal Medicine; Referring Provider Internal Medicine; Visit Provider Internal Medicine
DX: Z12.31 Encounter for screening mammogram for malignant neoplasm of breast (principal)
CPT/HCPCS: 77063; 77067

== ENCOUNTER → 2024-04-28 | Outpatient (CLI) | payer MEDICARE, SELFPAY ==
[2024-04-28 17:56] LABS: T4 Free Direct 1.01 ng/dL (0.76-1.46); Thyroid Stim Hormone (TSH) 1.41 uIU/mL (0.358-3.74)
== END | disposition home or self-care (01) ==
LOC: MTLAB 15:17
PROVIDERS: PCP Internal Medicine; Referring Provider Internal Medicine; Visit Provider Internal Medicine
DX: D64.9 Anemia, unspecified (principal)
CPT/HCPCS: 36415; 84439; 84443

== ENCOUNTER → 2024-10-04 | Outpatient (CLI) | payer MEDICARE, SELFPAY ==
[2024-10-04 12:12] LABS: Absolute Lymphocyte Count 0.93 X10^3/uL (0.83-4.51); Absolute Neutrophil Count 4.2 X10^3/uL (2.0-7.7); Basophil# 0.05 X10^3/uL; Basophil% 0.9 % (0-1); Eosinophils% 1.7 % (0-5); Hematocrit 38.5 % (37-47); Hemoglobin 12.7 g/dL (12.0-15.0); Lymphocyte # 0.93 X10^3/ul (0.83-4.51); Lymphocyte % 15.9 % (19-41); Mean Corpuscular Hgb 31.4 pg (27.0-32.0); Mean Corpuscular Volume 95.1 fL (81-99); Mean Platelet Vol. 11.2 fl (6.2-12.0); Monocyte# 0.59 X10^3/uL; Monocyte% 10.1 % (0-10); NRBC Flagged by Analyzer 0 % (0-5); Neutrophil # 4.17 X10^3/uL (2.7-7.7); Neutrophil % 71.2 % (47-70); Platelet Count 239 K/mm3 (150-450); RBC Distribution Width CV 13.3 % (11.6-14.6); RBC Distribution Width SD 46.7 fl (35.1-43.9); Red Blood Count 4.05 M/mm3 (4.2-5.4); White Blood Count 5.9 K/mm3 (4.4-11.0)
[2024-10-04 12:28] LABS: ALB/GLOB Ratio 0.9 RATIO (0.9-2.4); AST(SGOT) 24 U/L (15-37); Alanine Aminotransfer ALT/SGPT 27 U/L (13-56); Albumin, Serum 3.4 g/dL (3.2-5.0); Alkaline Phosphatase 89 U/L (45-117); Anion Gap 2 (5-15); BUN 14 mg/dL (7-18); BUN/Creat Ratio 19.9 RATIO (10-20); Calcium,Total 9.3 mg/dL (8.5-10.1); Chloride 105 mmol/L (98-107); Cholesterol 196 mg/dL (200); EST Glomerular Filtration Rate 85 mL/min (>60); Est Glom Filt Rate - Afr Amer 103 mL/min (>60); Globulin 3.9 g/dL (2.2-4.2); Glucose 96 mg/dL (74-106); High Density Lipoprotein 98 mg/dL; Potassium 4.4 mmol/L (3.5-5.1); Protein, Total 7.3 g/dL (6.4-8.2); Sodium Level 138 mmol/L (136-145); Triglycerides 68 mg/dL; Very Low Density Lipoprotein 14 mg/dL (5-40)
== END | disposition home or self-care (01) ==
LOC: BIMLAB 10:46
PROVIDERS: PCP Internal Medicine; Referring Provider Internal Medicine; Visit Provider Internal Medicine
DX: K21.9 Gastro-esophageal reflux disease without esophagitis (principal); Z13.6 Encounter for screening for cardiovascular disorders; M85.80 Other specified disorders of bone density and structure, unspecified site
CPT/HCPCS: 36415; 80053; 80061; 82306; 85025

== ENCOUNTER → 2025-01-01 | Outpatient (CLI) | payer MEDICARE, SELFPAY ==
--- NOTE | 2025-01-01 10:26 | BI_ITS ---
EXAM: SCRN MAMM (CAD)W/MINOO BILAT DATE: 01/01/2025 CLINICAL HISTORY: F, Age 79 y/o , BREAST CANCER SCREENING. No family history. BREAST CANCER RISK ASSESSMENT: Not assessed. TECHNIQUE: Bilateral screening digital breast tomosynthesis with 2D and 3D images. Computer aided detection. COMPARISON: Prior exam(s) dating back to December 29, 2023.. FINDINGS: Bilateral Breast Mammographic Findings: No significant masses, calcifications or other abnormalities are identified. TISSUE DENSITY: The breast tissue is heterogenously dense, which may obscure small masses. No suspicious masses, areas of developing architectural distortion, or suspicious calcifications. BI/SCRN MAMM (CAD)W/MINOO BILAT IMPRESSION: Right Breast: BI-RADS category 1, negative findings. Left Breast: BI-RADS category 1, negative findings. Normal interval followup mammograms are recommended in 12 months. In the presen ce of normal or benign imaging a clinically palpable breast mass should be managed using clinical parameters. Routine annua l followup mammography recommended. A letter with findings and recommendations will be mailed to the patient. ASSESSMENT: BIRADS 1 NEGATIVE RECOMMENDATION: 1: ROUTINE ANNUAL FOLLOW-UP Bilateral in 1 Year Reading Location: [place] [id number]
== END | disposition home or self-care (01) ==
LOC: OPBI 10:15
PROVIDERS: PCP Internal Medicine; Referring Provider Internal Medicine; Visit Provider Internal Medicine
DX: Z12.31 Encounter for screening mammogram for malignant neoplasm of breast (principal)
CPT/HCPCS: 77063; 77067

== ENCOUNTER → 2025-08-31 | Outpatient (CLI) | payer MEDICARE, SELFPAY ==
--- NOTE | 2025-08-31 10:59 | RAD_ITS ---
PROCEDURE: CHEST PA AND LATERAL 08/31/2025 REASON FOR EXAM: CHEST CONGESTION TECHNIQUE: Procedure Code: RADCXR Modality: DX Procedure: CHEST PA AND LATERAL COMPARISON: Chest x-ray dated 02/19/2023 FINDINGS: Hardware: None Heart: Heart size and configuration are within normal limits. Pulmonary vasculature is unremarkable. Aorta appears unremarkable. Mediastinum: Mediastinal silhouette is normal. Lungs: Trachea is midline. Lungs are expanded without evidence of pneumothorax, atelectasis, consolidation, effusion or pneumonic infiltrate. Bones: Spondylosis of the thoracic spine is noted. RAD/Chest PA and Lateral IMPRESSION: No acute cardiopulmonary process is identified radiographically. Reading Location: [id number]
== END | disposition home or self-care (01) ==
LOC: MTRAD 10:57
PROVIDERS: PCP Internal Medicine; Referring Provider Internal Medicine; Visit Provider Internal Medicine
DX: R09.89 Other specified symptoms and signs involving the circulatory and respiratory systems (principal)
CPT/HCPCS: 71046

== ENCOUNTER → 2025-10-05 | Outpatient (CLI) | payer MEDICARE, SELFPAY ==
[2025-10-05 12:27] LABS: Hematocrit 37.0 % (37-47); Hemoglobin 12.3 g/dL (12.0-15.0); Immature Granulocytes Count 0.010 X10^3/uL (0.0-0.0); Mean Corp Hgb Conc 33.2 g/dL (32-36); Mean Corpuscular Volume 95.1 fL (81-99); Mean Platelet Vol. 11.0 fl (6.2-12.0); NRBC Flagged by Analyzer 0 % (0-5); Platelet Count 255 K/mm3 (150-450); RBC Distribution Width CV 13.0 % (11.6-14.6); RBC Distribution Width SD 45.1 fl (35.1-43.9); Red Blood Count 3.89 M/mm3 (4.2-5.4); White Blood Count 4.7 K/mm3 (4.4-11.0)
[2025-10-05 13:27] LABS: AST(SGOT) 27 U/L (<=31); Alanine Aminotransfer ALT/SGPT 21 U/L (<=34); Albumin, Serum 3.8 g/dL (3.4-4.8); Alkaline Phosphatase 77 U/L (35-104); Anion Gap 9 (5-15); BUN 8 mg/dL (4-19); BUN/Creat Ratio 10.5 RATIO (10-20); Calcium,Total 9.6 mg/dL (7.6-11.0); Carbon Dioxide 29.8 mmol/L (21.0-32.0); Chloride 103 mmol/L (98-108); Globulin 3.1 g/dL (2.2-4.2); Glucose 94 mg/dL (70-99); Potassium 4.2 mmol/L (3.3-5.1); Vitamin D,25 Hydroxy 35.2 ng/mL (30-100)
== END | disposition home or self-care (01) ==
LOC: MTLAB 11:22
PROVIDERS: PCP Internal Medicine; Referring Provider Internal Medicine; Visit Provider Internal Medicine
DX: K21.9 Gastro-esophageal reflux disease without esophagitis (principal); M85.80 Other specified disorders of bone density and structure, unspecified site
CPT/HCPCS: 36415; 80053; 82306; 85025